=== PATIENT | male | born 1935 | race Caucasian/White ===

== ENCOUNTER 2018-12-16 10:28 | Inpatient (IN) ==
[2018-12-16 11:25] LABS: ALB/GLOB RATIO 1.5; ALBUMIN 3.5 g/dL (3.5-5.0); CALCIUM 8.3 mg/dL (8.8-10.2); CREATININE 1.5 mg/dL (0.7-1.2); POTASSIUM 4.8 mmol/L (3.5-5.1); TOTAL BILIRUBIN 0.51 mg/dL (0.20-1.00); TOTAL PROTEIN 5.9 g/dL (6.3-8.3)
[2018-12-16 11:34] LABS: BASO# 0.01 X1000 (0.0-0.2); BASO% 0.2 % (0.0-0.8); EOS# 0.09 X1000 (0.0-0.7); EOS% 1.5 % (0.0-10.0); HEMATOCRIT 20.8 % (42.0-52.0); HEMOGLOBIN 5.8 g/dL (14.0-18.0); IMM GRAN# 0.02 X1000 (0.0-0.04); IMM GRAN% 0.3 % (0.0-0.5); LYMPH# 0.57 X1000 (1.2-3.4); LYMPH% 9.3 % (20.5-51.1); MCH 24.9 PG (27-31); MCHC 27.9 g/dL (33-37); MCV 89.3 FL (81-99); MONO# 0.54 X1000 (0.11-0.59); MONO% 8.8 % (1.7-9.3); MPV 11.7 FL (7.4-10.4); NEUT# 4.88 X1000 (1.4-6.5); NEUT% 79.9 % (42.2-75.2); PLT 175 X1000 (130-400); RBC 2.33 XMIL (4.7-6.1); RDW 17.9 % (11.5-14.5); WBC 6.11 X1000 (4.8-10.8)
[2018-12-16] MEDS ORDERED: DUONEB (A & A) INH PRN (13:30)
[2018-12-16] MEDS ORDERED: ZOFRAN IV PRN (13:30)
[2018-12-16] MEDS ORDERED: TYLENOL PO PRN (13:30)
[2018-12-16] MEDS ORDERED: NS 1,000 ML IV SCH (13:30)
[2018-12-16 13:38] LABS: INR 3.08; PROTIME 32.7 Seconds (11.0-16.0)
[2018-12-16 13:39] LABS: PTT 72.4 Seconds (22.3-41.8)
--- NOTE | 2018-12-16 13:45 | PROVIDER DOCUMENTATION ---
This chart was entered by Aristeo Breen Scribe, acting as scribe for Jay Cabrera MD. HPI-Abdominal Pain/GI Problem - General Chief Complaint: Abnormal Lab[s] Stated Complaint: Abnormal lab values/ weakness Time Seen by Provider: 12/16/18 10:43 Source: patient Allergies/Adverse Reactions: Patient Allergies Allergy/AdvReac Type Severity Reaction Status Date / Time codeine [Codeine] AdvReac Intermediate LETHARGIC Verified 12/16/18 10:41 Home Medications: Home Medication List Medication Instructions Recorded Confirmed Last Taken Type ATORVAstatin [Lipitor] 20 mg PO QHS 12/02/16 12/16/18 12/15/18 History Allopurinol 100 mg PO BID 12/02/16 12/16/18 12/15/18 History Aspirin [Adult Low Dose Aspirin EC] 81 mg PO DAILY 12/02/16 12/16/18 12/15/18 History Magnesium Oxide [Mag-Ox] 400 mg PO DAILY tablet 12/20/16 12/16/18 12/15/18 Rx Pantoprazole [Protonix] 40 mg PO BID tablet 08/27/17 12/16/18 12/15/18 Rx Hydralazine [Apresoline] 50 mg PO TID 11/17/17 12/16/18 12/15/18 History Tamsulosin [Flomax] 0.4 mg PO QHS 11/17/17 12/16/18 12/15/18 History Potassium Chloride E.r. [Micro-K] 8 meq PO BID 11/25/17 12/16/18 12/15/18 History Sucralfate [Carafate] 1 gm PO 4XDAY 11/25/17 12/16/18 12/15/18 History Carvedilol [Coreg] 12.5 mg PO Q12H tablet 12/04/17 12/16/18 12/15/18 Rx Furosemide [Lasix] 40 mg PO DAILY tablet 12/04/17 12/16/18 12/15/18 Rx Levothyroxine [Synthroid] 112 microgm PO DAILY@0700 tablet 12/04/17 12/16/18 12/15/18 Rx Multivitamins/Iron [Hemocyte Plus 1 each PO DAILY capsule 12/04/17 12/16/18 Unknown Rx Capsule] Polyethylene Glycol 3350 [Miralax] 17 gm PO BID powder, packet 12/04/17 12/16/18 12/15/18 Rx Pregabalin [Lyrica] 100 mg PO DAILY 12/03/18 12/16/18 12/15/18 History Rivaroxaban [Xarelto] 20 mg PO DAILY 12/03/18 12/16/18 12/15/18 History Dexlansoprazole [Dexilant] 30 mg PO DAILY #7 bp 12/12/18 12/16/18 12/15/18 Rx Acetaminophen [Tylenol] 650 mg PO Q4H PRN PRN 12/16/18 12/16/18 Unknown History Ferrous Fumarate 324 mg PO DAILY 12/16/18 12/16/18 Unknown History Hydrocodone/Acetaminophen [[place] 1 ea PO Q6H PRN PRN 12/16/18 12/16/18 Unknown History 10-325 Tablet] Ipratropium/Albuterol Sulfate 3 ml INHALATION TID 12/16/18 12/16/18 Unknown History [Iprat-Albut 0.5-3(2.5) mg/3 ml] Levofloxacin [Levaquin] 500 mg PO DAILY 12/16/18 12/16/18 Unknown History Magnesium Hydroxide [Milk of 30 ml PO DAILY PRN PRN 12/16/18 12/16/18 Unknown History Magnesia] No122/Iron/Folic Acid 1 ea PO DAILY 12/16/18 12/16/18 Unknown History [ Multi Tablet] - History of Present Illness-ABD Nature of Presenting Problems: Pt is a 83 yom who presents to the ED with a CC of abnormal labs. Pt comes from a group home and states he was sent to the ED for having an abnormal H&H lab. Pt reports he was diagnosed with probable anemia with a hx of GI bleeds. Pt reports he has been having black stools lately. Pt also complains of being short of breath, having a productive cough, and experiencing generalized weakness. Pt reports a hx of HTN. Pt reports he had pneumonia last night. Pt reports being on a blood thinner. Abdominal Pain Onset Location: reports: generalized abdomen (Mild) Pain Radiation: reports: no radiation Quality of Pain: reports: dull Severity in ED: reports: mild Onset/Duration: reports: 3 days ago Timing: reports: still present Associated Symptoms: reports: cough, shortness of breath, weakness Dark Stools Present?: reports: black Rectal Bleeding: reports: blood mixed with stool Bruising or Bleeding Gums?: No Similar Symptoms Previously?: Yes Recently seen or treated by another doctor?: No Review of Systems - Adult - REVIEW OF SYSTEMS - ADULT Constitutional: reports: see HPI Eyes: reports: no symptoms reported Ears, Nose, Mouth & Throat: reports: no symptoms reported Cardiovascular: reports: no symptoms reported Respiratory: reports: no symptoms reported Gastrointestinal: reports: see HPI, abdominal pain, rectal bleeding, other Genitourinary: reports: no symptoms reported Musculoskeletal: reports: no symptoms reported Integumentary: reports: no symptoms reported Neurological: reports: no symptoms reported Psychiatric: reports: no symptoms reported Endocrine: reports: no symptoms reported Hematologic/Lymphatic: reports: no symptoms reported Allergic/Immunologic: reports: no symptoms reported All Other Systems: Reviewed and Negative Past History - Adult - PAST MEDICAL HISTORY-ADULT Review of Records: reports: Old Records Reviewed, Nursing Assessment Review, Medications Reviewed, Social history reviewed & non-contributory. Major Childhood Illnesses: reports: denies history Cardiovascular: reports: cardiac disease, CHF, HTN, hyperlipidemia, CA Respiratory: reports: COPD Gastrointestinal: reports: denies history Obstetrical/Gynecological: reports: denies history Genitourinary: reports: other (prostate disease with prostate surgery) Musculoskeletal: reports: denies history Neurological: reports: denies history Psychiatric: reports: denies history Endocrine/Immune: reports: thyroid disorder Other Conditions: reports: denies history - PRIOR SURGERIES/PROCEDURES Surgical/Procedure History: reports: CABG, cholecystectomy - IMMUNIZATION STATUS Childhood Immunizations: See Nurse Assessment Flu Vaccine: See Nurse Assessment - FAMILY HISTORY Family History: reviewed, not pertinent - SOCIAL HISTORY Smoking: non-smoker, quit greater than 1 year Substance Use: alcohol Alcohol Use Frequency: every day Physical Exam-General - PHYSICAL EXAM-ADULT Initial Vital Signs Reviewed: Yes - CONSTITUTIONAL General Appearance: alert, mild distress - EYES Eyes: PERRL/EOMI, pink conjunctivae - HEAD, EARS, NOSE, MOUTH & THROAT HENMT: normocephalic/atraumatic, moist mucous membranes - NECK Neck: non-tender, full range of motion - RESPIRATORY Respiratory: chest non-tender, lungs clear, normal breath sounds - CARDIOVASCULAR Cardiovascular: normal peripheral pulses, regular rate, rhythm - GASTROINTESTINAL (ABDOMEN) Abdominal Exam: normal bowel sounds, soft, tenderness - MUSCULOSKELETAL Extremity: normal range of motion, non-tender - SKIN Integumentary: warm/dry, pallor, swelling - NEUROLOGIC Neurologic: grossly normal - PSYCHIATRIC Psych/Mental Status: normal mood/affect, normal thought content, normal thought process, oriented x 3 Progress - PLAN OF CARE/RESULTS Progress/Plan/Lab Results: Vital Signs - 8 hr 12/16/18 10:38 Temperature 98.2 F Pulse Rate 79 Respiratory Rate 15 Blood Pressure 125/71 O2 Sat by Pulse Oximetry 95 Orders Category Date Time Status CBC WITH ELECTRONIC DIFF [HEME] Stat Lab 12/16/18 10:49 Results COMPREHENSIVE METABOLIC PANEL [CHEM] Stat Lab 12/16/18 10:49 Received OCCULT BLOOD SCREENING [STOOL] Stat Lab 12/16/18 10:55 Uncollected TYPE & SCREEN [BBK] Stat Lab 12/16/18 10:49 Received Result Diagrams: 12/16/18 10:49 12/16/18 10:49 - CONSULTS/PCP/HOSPITALIST Notification #1 *Consult/PCP/Hospitalist*: d/w DEJAN Uriostegui Time Discussed: 13:10 Consult Disposition: Admit Departure - Departure Date of Disposition Decision: 12/16/18 Time of Disposition Decision: 13:15 DIAGNOSIS: Anemia, GI bleed Disposition: ADMITTED INPATIENT 09 Certified Medical Emergency: Emergent Condition: Stable Additional Instructions: ED Follow Up Instructions: You have been treated by a care provider in the Emergency Department. These instructions are being provided to you so you can have an understanding of how to care for yourself upon discharge. Upon discharge from the Emergency Department, you are responsible for making arrangements for follow-up care by a physician of your choice. Take all prescribed medications as directed. Return to the Emergency Department immediately for any new or worsening symptoms. You may call the Physician Referral phone number at [phone] to obtain a list of Physicians who are taking new patients. Referrals and Follow-Ups: Zhen Rapp [Primary Care Provider] - - Critical Care Note This patient required my direct & personal management of CC.: No Attestation - Physician/ THO Attestation Patient care was provided by Advanced Practice Provider:: No The physician spent face to face time with patient:: Yes Advanced Practice Provider documentation review:: Supervising physician onsite and consulted in the evaluation and care of this patient. The physician did have a face to face encounter with the patient. This chart was documented by the indicated scribe, (Aristeo Breen, Caleb) and accurately reflects the services I performed and decisions made by me, Jay Cabrera MD, as attested by the provider's signature.
[2018-12-16] MEDS: CARAFATE LIQUID PO SCH ×2 (13:48→20:03)
--- NOTE | 2018-12-16 13:50 | Diag Imaging Result Doc PS360 ---
EXAM: CHEST-PORTABLE HISTORY: r/o pna TECHNIQUE: Single view COMPARISON: 12/03/2017 FINDINGS: The lungs are well expanded. Sternal wires and a left pacemaker. Mildly prominent heart. There is pulmonary edema. No pleural effusions identified. No consolidation. IMPRESSION: Persistent pulmonary edema Electronically signed by Marlon Garcia 12/16/2018 1:47 PM
[2018-12-16] MEDS: COREG PO SCH (14:01)
[2018-12-16 14:20] LABS: IRON SATURATION 5 %; TIBC 268 ug/dL; TOTAL IRON 14 ug/dL (53-167); UNBOUND IRON 254 ug/dL (112-346)
[2018-12-16] MEDS: PROTONIX 80 MG in NS 80 ML IV SCH ×3 (14:35→20:55)
[2018-12-16 14:40] LABS: FERRITIN 121 ng/mL (30-400)
[2018-12-16] MEDS ORDERED: DUONEB (A & A) INH SCH (15:00)
[2018-12-16] MEDS ORDERED: LASIX IV ONE ×2 (15:10→19:37)
[2018-12-16] MEDS ORDERED: SOLU-MEDROL IV ONE (15:39)
[2018-12-16] MEDS ORDERED: ROCEPHIN 1 GM in NS 50 ML IV SCH (15:45)
[2018-12-16 16:26] LABS: ALLEN TEST YES; BE -3.9 mmoll (-3.0-3.0); BLOOD TYPE ARTERIAL; HCO3-(ACT) 21.9 mmoll (20.0-26.0); METHB 0.9 % (0.0-1.5); O2(CT) 10.2 mL/dL (15.0-23.0); O2HB 93.5 % (95.0-99.0); PCO2(98.6) 31 mmHg (35-45); PO2(98.6) 70 mmHg (60-100); SAMPLE BLOOD; SAO2 97.4 % (95.0-100.0); THB 7.7 g/dL (11.5-17.4); pH(98.6) 7.42 (7.35-7.45)
[2018-12-16 16:27] LABS: MODALITY ROOM AIR
--- NOTE | 2018-12-16 18:04 | HISTORY AND PHYSICAL ---
PRIMARY CARE PROVIDER: Dr. Zhen Rapp CHIEF COMPLAINT: Weakness. HISTORY OF PRESENT ILLNESS: Mr. Adama Siegel is an 83-year-old male with a medical history of congestive heart failure, ejection fraction 40 to 45 percent, GERD, ischemic cardiomyopathy, MT with CAD and CABG in the past, hypothyroidism, COPD, where he wears 3 L of oxygen p.r.n., and chronic atrial fibrillation, but currently is being paced, and hypertension is here with complaints of generalized weakness. According to him back in November, he was admitted, or was attempted to be admitted December 03. During that time, we did not have GI coverage and was sent to [facility]. Prior to transfer, he did receive a unit of blood. The patient states that while he was there he received colonoscopy and EGD, but they did not find anything. He was then transferred to [facility] where he states he has been for the last 3 or 4 days. He claims that over the last 3 to 4 weeks, he has continued to have black tarry stools, dizziness started yesterday morning. He had some chills yesterday. He also on top of that complains of having shortness of breath and coughing up white phlegm for at least 3 days. Examination revealed that he had blood in the stool. His hemoglobin is 5.8 and hematocrit of 20.8. On top of that, he does have a mildly elevated D-dimer. He has got swelling in the right lower extremity with some tenderness. He also has chronic kidney disease stage 3, but it appears that he has a little bit of acute kidney injury on top of it. He denies any abdominal pain. He denies nausea, no vomiting. He is going to go for a CT of the abdomen and pelvis with a consult for Gastroenterology. He will also receive blood products. The INR subsequently is actually 3.0, and he is not on any Coumadin. However, he is on Xarelto for which we will hold. Chest x-ray reveals that he has got some pulmonary edema. He has been coughing. We will give him some Lasix with his blood products that he will be receiving, which includes 2 units of packed red blood cells and 1 FFP. He will be transferred to [facility] for closer observation. PAST MEDICAL HISTORY: 1. Congestive heart failure, ischemic cardiomyopathy with an ejection fraction of 40 to 45 percent and a permanent pacemaker. 2. CKD stage 3. 3. Hypothyroidism. 4. COPD with 3 L of oxygen p.r.n. 5. CAD with an MT and a CABG. 6. Hypertension. 7. Chronic atrial fibrillation. 8. BPH. 9. Peripheral neuropathy. 10. GERD. 11. Hyperlipidemia. 12. Gout. 13. Iron deficiency anemia, PAST SURGICAL HISTORY: 1. CABG. 2. Cholecystectomy. 3. 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 4. Bilateral carpal tunnel release. 5. Permanent pacemaker. 6. EGD dilatation February [address] Dewitt. 7. Reports that he had a colonoscopy and EGD at [facility]. 8. Hyperlipidemia. SOCIAL HISTORY: He quit smoking and drinking in 1989. 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 He smoked 1 and a half packs per day for 40 years, but again he said his big year of quitting was 1989. He has been on crutches due to the left kzwne-aij-ahua amputation since 1972. He lives with his son and is currently in rehab at [facility] for the last 3 or 4 days according to him. FAMILY HISTORY: He said his mother had heart trouble and his father had a brain tumor. ALLERGIES: Codeine states in that it knocks him out. HOME MEDICATIONS: 1. Flomax 0.4 mg p.o. nightly. 2. Lipitor 20 mg p.o. nightly. 3. Aspirin enteric-coated 81 mg p.o. daily. 4. Allopurinol 100 mg p.o. twice daily. 5. Hydralazine 50 mg p.o. t.i.d. 6. Carafate 1 g p.o. 4 times daily. 7. Ferrous fumarate 324 mg p.o. daily. 8. Albuterol and Atrovent nebulizers t.i.d. 9. Levaquin 500 mg p.o. daily. 10. Lyrica 100 mg p.o. daily. 11. Potassium chloride 8 mEq p.o. twice daily. 12. Milk of magnesia 30 mL p.o. daily p.r.n. 13. Oaks 10 mg 1 tablet p.o. every 6 hours p.r.n. 14. vitamins with iron and folic acid 1 tablet p.o. daily. 15. Tylenol 650 mg p.o. every 4 hours p.r.n. 16. Xarelto 20 mg p.o. daily. 17. Coreg 12.5 mg p.o. twice daily. 18. Dexilant 30 mg p.o. daily. 19. Another multivitamin with iron Hemocyte 1 tablet p.o. daily. 20. Lasix 40 mg p.o. daily. 21. Mag-Ox 400 mg p.o. daily. 22. MiraLAX 17 g p.o. twice daily. 23. Protonix 40 mg p.o. twice daily. 24. Synthroid 112 mcg p.o. daily. REVIEW OF SYSTEMS: Fourteen point review of systems are complete and all were negative except for those mentioned above in the HPI. PHYSICAL EXAMINATION: VITAL SIGNS: Temperature 98.4 degrees, heart rate 80, respiratory rate 17, blood pressure 156/83, O2 saturation 100% on room air. GENERAL: Mr. Adama Siegel is a 83-year-old male. He is in no acute distress. He is able answer questions appropriately. HEENT: Atraumatic, normocephalic. Pupils equal, round, reactive to light. Extraocular movements intact. Mucous membranes are moist. NECK: Trachea midline. CARDIOVASCULAR: S1, S2. Regular rate and rhythm. No rubs, gallops, murmurs. He has right lower edema, +1 dorsalis pedal pulse on the right. A left cnbno-ohk-vilu amputation, + 2 radial pulses. Negative for carotid bruits. Mild JVD. PULMONARY: Mild crackles in the bases. No accessory muscle use or work of breathing noted. He is tolerating room air Soft, nontender, nondistended. Positive bowel sounds x4. EXTREMITIES: Moves all extremities equally with decreased range of motion and again is noted a left lickn-hlc-nknf amputation NEUROLOGIC: A and O x3. Follows commands. Increased sensory in the right lower extremity. Tender to touch. SKIN: Warm, dry, and intact. It seems like on the right exterior of the right foot, there is a small wound that is not open. It looks like it is dried and scab, but it is tender to him. LABORATORY DATA: White blood cells 6000, hemoglobin 5.8, hematocrit 20.8, platelet count 175,000. INR is 3.08, PTT is 72.4. D-dimer is 1.18. Sodium 136, potassium 4.8, BUN 30, creatinine is 1.5, glucose 120, calcium 8.3. Iron is 14, total iron-binding capacity is 268, saturation 5, unsaturated 254, ferritin is 121, bilirubin 0.51, AST 39, ALT 29, albumin 3.5. Vitamin B12 is 511. IMAGING: Chest x-ray, persistent pulmonary edema. ASSESSMENT AND PLAN: 1. Likely upper gastrointestinal bleeding with black tarry stools and dizziness along with feeling weak. In the past, he has had esophagogastroduodenoscopy/dilatation. At that time, it showed esophagitis; this was in February 2017 when he had a esophagogastroduodenoscopy with Dr. Dewitt. Apparently, he has most recently according to him, had a new colonoscopy and esophagogastroduodenoscopy at [facility] for which we are going to try and get medical records from. He presented here December 03 to the ER with the same symptoms, was found to have a low hemoglobin and hematocrit and was given a unit of blood and transferred to [facility] as there was no available human resource statistician at that time. He denies any abdominal pain. We are going to start him on Protonix drip, Carafate, clear liquids for now, NPO after midnight. Serial hemoglobin hematocrit. He is also going to get 2 units of blood. He is also going to have to get a unit of fresh frozen plasma as he has an elevated INR from unknown cause and will repeat INR in the morning. We will consult Dr. Dewitt as he has seen him in the past. 2. Questionable coagulopathic. He is on Xarelto, we are going to hold that. He has elevated D- dimer, an elevated INR as well. He is going to get a unit of fresh frozen plasma. We will repeat will follow up on the D-dimer. 3. Acute hypoxemic respiratory insufficiency. He is requiring oxygen. He has had a productive cough for 3 days. D-dimer is elevated. We are going to get a V/Q scan as he has elevation in his creatinine as well. He will be on nebulizers p.r.n. oxygen and if we need to we can start an antibiotic. 4. History of chronic obstructive pulmonary disease. We are going to get an ABG to evaluate if he is having exacerbation. The bicarbonate on his chemistry is 21, so it could be a chronic obstructive pulmonary disease exacerbation. We will start some IV steroids. We will go ahead and do some antibiotics. 5. It seems as though he may have some acute on chronic systolic congestive heart failure. We are going to add a proBNP to his labs and we are going to start him on IV Lasix. 6. Elevated D-dimer. V/Q scan, a right lower extremity ultrasound. 7. Acute kidney injury on chronic kidney disease stage 3. Again, he has got some congestive heart failure. He is getting fluids via blood products minutes, so he is going to get IV Lasix. We will need to follow his BUN and creatinine closely. 8. Iron deficiency anemia, now with acute blood loss anemia, getting 2 units packed red blood cells and 1 fresh frozen plasma. 9. Gastroesophageal reflux disease. He is on a Protonix drip. 10. Hypothyroidism. We will continue Synthroid. 11. History of chronic atrial fibrillation, but we are going to hold off on his Xarelto due to the gastrointestinal bleeding. 12. Gout. Hold his medication for that as he has acute kidney injury. 13. 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 No complaints of chest pain at this time. 14. Hyperlipidemia. Continue statin. 15. Benign prostatic hypertrophy. Continue Flomax. 16. Deep venous thrombosis and sequential compression devices. Dictated by DEJAN Moore for Melvin Han MD cc: DEJAN Moore MD Alan Walker, MD
--- NOTE | 2018-12-16 18:24 | Diag Imaging Result Doc PS360 ---
LUNG SCAN / VQ - 12/16/2018 INDICATION: sob; elevated ddimer TECHNIQUE: 4120 mCi of DTPA was used for inhalation. 6.4 mCi of MAA was used for injection. COMPARISON: Chest x-ray earlier 12/16/2018 FINDINGS: There is patchy localization of the inhaled radiotracer compatible with small airways disease. There is nonspecific multifocal small perfusion defect in the lower lobes. This appears to match with ventilation defects. IMPRESSION: Nondiagnostic exam. Cannot exclude small pulmonary emboli in the lower lobes bilaterally. Electronically signed by Christopher Fernando 12/16/2018 6:22 PM
--- NOTE | 2018-12-16 18:51 | Diag Imaging Result Doc PS360 ---
CT ABDOMEN/PELVIS W/O CONTRAST - 12/16/2018 INDICATION: gib; severe anemia COMPARISON: 04/02/2015 FINDINGS: There is cardiomegaly. There are pacemaker leads in the heart. There are small bilateral pleural effusions. There are ill-defined infiltrates in the lung bases bilaterally most suggestive of pulmonary edema. There has been increase in size of the right renal cyst at the lower pole. This now measures 2.5 cm. This still appears simple and of fluid density. Stable cholecystectomy changes. Otherwise all abdominal organs appear normal. There is severe vascular disease of the aorta and pelvic branches. There is also severe vascular disease of the superior mesenteric artery. There is trace ascites in the pelvis. There is severe diverticulosis of the sigmoid colon. No definite bowel obstruction or inflammation. Normal appendix. Urinary bladder, prostate, and rectum are normal. No severe constipation. There are moderate degenerative changes of the spine. No acute or suspicious bony lesion. IMPRESSION: 1. Cardiomegaly, pleural effusions, pulmonary edema. 2. Severe diverticulosis coli. 3. Severe superior mesenteric artery disease. 4. Trace nonspecific ascites. This exam was performed using automated exposure control, adjustment of mA or kV according to patient size, and/or use of iterative reconstruction technique Electronically signed by Christopher Fernando 12/16/2018 6:49 PM
[2018-12-16] MEDS: FLOMAX PO SCH (20:03)
[2018-12-16] MEDS ORDERED: NS 500 ML ONE (20:30)
[2018-12-16] MEDS: NORCO-10 PO PRN (20:35)
[2018-12-16] MEDS: NS 500 ML IV SCH (20:56)
[2018-12-16 21:32] LABS: HEMATOCRIT 23.6 % (42.0-52.0); HEMOGLOBIN 7.1 g/dL (14.0-18.0)
[2018-12-16] MEDS: DUONEB (A & A) INH SCH (22:58)
[2018-12-17] MEDS: PROTONIX 80 MG in NS 80 ML IV SCH ×3 (00:36→08:35)
[2018-12-17] MEDS: COREG PO SCH ×2 (01:16→13:29)
[2018-12-17] MEDS: NORCO-10 PO PRN ×3 (01:17→20:19)
[2018-12-17 01:45] LABS: HEMATOCRIT 23.2 % (42.0-52.0); HEMOGLOBIN 6.8 g/dL (14.0-18.0)
[2018-12-17] MEDS: CARAFATE LIQUID PO SCH ×4 (02:14→20:19)
[2018-12-17] MEDS: DUONEB (A & A) INH SCH ×5 (04:57→19:52)
[2018-12-17 05:53] LABS: PTT 53.2 Seconds (22.3-41.8)
[2018-12-17 06:09] LABS: ALB/GLOB RATIO 1.8; ALBUMIN 3.5 g/dL (3.5-5.0); CREATININE 1.2 mg/dL (0.7-1.2); MAGNESIUM 2.5 mg/dL (1.5-2.7); POTASSIUM 4.9 mmol/L (3.5-5.1); TOTAL BILIRUBIN 0.87 mg/dL (0.20-1.00); TOTAL PROTEIN 5.4 g/dL (6.3-8.3)
[2018-12-17 06:12] LABS: HEMATOCRIT 25.4 % (42.0-52.0); HEMOGLOBIN 7.5 g/dL (14.0-18.0); LYMPH# 0.35 X1000 (1.2-3.4); LYMPH% 8.6 % (20.5-51.1); MCH 25.8 PG (27-31); MCHC 29.5 g/dL (33-37); MCV 87.3 FL (81-99); MONO# 0.05 X1000 (0.11-0.59); MONO% 1.2 % (1.7-9.3); MPV 12.4 FL (7.4-10.4); NEUT# 3.68 X1000 (1.4-6.5); NEUT% 90.2 % (42.2-75.2); PLT 180 X1000 (130-400); RBC 2.91 XMIL (4.7-6.1); RDW 16.9 % (11.5-14.5); WBC 4.08 X1000 (4.8-10.8)
[2018-12-17 06:15] LABS: INR 1.93; PROTIME 22.5 Seconds (11.0-16.0)
[2018-12-17] MEDS ORDERED: SODIUM CHLORIDE 0.9% 10 ML ONE ×2 (06:45→10:01)
--- NOTE | 2018-12-17 07:13 | EKG Report ---
Test Performed on : 12/17/2018 06:41:15 AM Test Reason : chest pain Blood Pressure : / mmHG Vent. Rate : 080 BPM Atrial Rate : 091 BPM P-R Int : 000 ms QRS Dur : 194 ms QT Int : 484 ms P-R-T Axes : 000 -79 097 degrees QTc Int : 558 ms Ventricular-paced rhythm Abnormal ECG When compared with ECG of 03-DEC-2018 16:24, (Unconfirmed) premature ventricular complexes. are no longer present Unconfirmed Result
[2018-12-17] MEDS ORDERED: DIPRIVAN 1% ONE (07:40)
[2018-12-17] MEDS ORDERED: HEMOCYTE PO SCH (09:00)
[2018-12-17] MEDS ORDERED: SOLU-MEDROL IV SCH (09:00)
[2018-12-17] MEDS ORDERED: LASIX IV SCH (09:00)
[2018-12-17] MEDS: HEMOCYTE PLUS CAPSULE PO SCH (09:18)
[2018-12-17] MEDS: LASIX PO SCH (09:18)
[2018-12-17] MEDS: SYNTHROID PO SCH (09:18)
[2018-12-17] MEDS: PRECARE PO SCH (09:19)
[2018-12-17] MEDS: VITAMIN K 10 MG in NS 50 ML IV SCH (09:19)
[2018-12-17] MEDS: MIRALAX PO SCH ×2 (10:09→20:20)
[2018-12-17] MEDS: LYRICA PO SCH ×2 (10:09→20:20)
[2018-12-17] MEDS: PROTONIX IV SCH (13:29)
[2018-12-17 14:01] LABS: HEMOGLOBIN 8.8 g/dL (14.0-18.0)
--- NOTE | 2018-12-17 14:19 | PROGRESS NOTE ---
DATE: 12/17/2018 INTERVAL HISTORY: The patient with only a very small bowel movement overnight, and reports that it continued to be black/melanotic. Continues to have paced rhythm. Complains primarily of phantom limb pain moved to his left lower extremity. No other new complaints. REVIEW OF SYSTEMS: Twelve point review of systems negative except as per interval history. LABORATORY: WBC 4.0, hemoglobin 7.5, hematocrit 25.4, and platelets 180,000. INR 1.9. Sodium 139, potassium 4.9, bicarb 23, BUN 32, creatinine 1.2, glucose 141, bilirubin 0.8, AST 55, ALT 46, alkaline phosphatase 135 and BNP 8,000. IMAGING: V/Q scan study not ideal, but no clear evidence of PE. Chest x-ray with pulmonary edema unchanged from previous CT abdomen and pelvis with cardiomegaly, pleural effusions, pulmonary edema, superior mesenteric artery disease, and diverticulosis, but no significant acute findings. VITAL SIGNS: T-max 98.7 degrees, pulse 89, respirations 19, blood pressure 146/62, and O2 saturation 95% on 3 L by nasal cannula. PHYSICAL EXAMINATION: General: No acute distress. Vitals: As above. HEENT: Normocephalic, atraumatic. Moist mucous membranes. Slight pallor noted. Cardiovascular: Currently, regular rate and rhythm. Pacemaker noted on upper chest. Pulmonary: Mild bibasilar crackles, but otherwise clear to auscultation. Good air entry. No wheezing. Abdomen: Soft. Nontender. Nondistended. Bowel sounds positive. Extremities: Peripheral pulses intact. Trace right lower extremity edema. Left hqeoc-qdn-sskh amputation noted. Neurologic: Cranial nerves grossly intact. No focal deficits identified. Psychiatric: Normal mood and affect. Awake, alert, and oriented x3. Skin: Healing wound on right foot. No new concerning rashes or lesions noted. ASSESSMENT AND PLAN: 1. Suspected upper gastrointestinal bleed with melena, dizziness and weakness. Status post transfusion of FFP and 1 unit of red cells last night with only slight improvement. He went from 6.8 to 7.5. Still some melanotic stools. We will transfuse an additional unit of blood and monitor. Likely EGD tomorrow. Clear liquids until midnight. Continue to monitor blood counts. Continue Protonix drip. Holding home Xarelto. 2. Elevated INR. Not really interpretable in the setting of Xarelto use, but holding Xarelto, and should be largely out of his system tomorrow. 3. Possible mild acute on chronic systolic congestive heart failure. The patient with EF of 40. Pulmonary edema on imaging that is not really significantly different than what he has had in the past, but they did put on some oxygen. Giving a little higher dose oral diuresis, but no need for highly aggressive diuresis at this point. 4. Chronic obstructive pulmonary disease. No sign of exacerbation at this time. 5. Acute kidney injury on likely chronic kidney disease 3. Improved with diuresis. Continue to monitor. 6. Paroxysmal atrial fibrillation. He has had a paced rhythm since he has been here but will monitor. 7. Hypothyroidism. Continue on Synthroid. 8. Gastroesophageal reflux disease. PPI drip as above. 9. BPH, stable. 10. Mildly elevated LFTs with normal bilirubin. Likely congestion rated related heart failure, but will recheck in the morning. No liver pathology noted on CT. If it persists, then we will get a liver ultrasound. 11. Neuropathic/phantom limb pain. We will restart home Lyrica. 12. Coronary artery disease. Holding home aspirin currently in the setting of gastrointestinal bleed, but will restart when possible.
--- NOTE | 2018-12-17 19:21 | GASTROENTEROLOGY CONSULTATION ---
DATE: 12/17/2018 REASON FOR CONSULT: GI bleed and severe anemia. HISTORY OF PRESENT ILLNESS: Mr. Siegel is an 83-year-old, male has history of congestive heart failure, GERD, ischemic cardiomyopathy, TN with CAD and CABG, hypothyroidism, COPD. He uses oxygen 3 L at home. He also has chronic atrial fibrillation. The patient has a pacemaker and he is paced. He complained of generalized weakness. In November while he was at the hospital, he received one unit of blood and was sent to [facility] where they performed colonoscopy and EGD, and did not find anything, he was sent to the rehab facility [facility]. Currently, he is complaining of having dark tarry stools, feeling weak and dizzy. He denied any fever, but had chills with SOB and productive cough. He has denied any nausea, vomiting and abdominal pain. Patient is currently on Xarelto. PAST MEDICAL HISTORY: Congestive heart failure, ischemic cardiomyopathy, CKD, hypothyroidism, COPD, CAD, hypertension, chronic atrial fibrillation, BPH, peripheral neuropathy, GERD, hyperlipidemia, gout, and iron deficiency anemia. PAST SURGICAL HISTORY: CABG, cholecystectomy, left ygcby-ngq-nupq amputation, bilateral carpal tunnel release, permanent pacemaker. SOCIAL HISTORY: He quit smoking and drinking. 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 He smokes 1 to 1-1/2 packs a day. He lives with his son and is currently in rehab at [facility]. FAMILY HISTORY: Mother had heart problems and father had a brain tumor. ALLERGIES: He is allergic to codeine. HOME MEDICATIONS: Allopurinol 100 mg twice a day, Lipitor 20 mg at bedtime, aspirin 81 mg daily, magnesium oxide 400 mg daily, Protonix 40 mg twice a day, hydralazine 50 mg 3 times a day, Flomax 0.4 mg at bedtime, potassium chloride 8 mEq twice a day, Carafate 1 g 4 times a day, Lasix 40 mg daily, Synthroid 112 mcg daily, multivitamins 1 tablet daily, MiraLAX 17 g twice a day, Coreg 12.5 mg twice a day, Lyrica 100 mg daily, Xarelto 20 mg daily, Dexilant 30 mg daily, hydrocodone/acetaminophen 1 tablet every 6 hours as needed, albuterol inhaler 3 times a day, magnesium hydroxide 30 mL daily, iron tablets 1 daily, acetaminophen 650 mg every 4 hours as needed, ferrous fumarate 324 mg daily, levofloxacin 500 mg daily. REVIEW OF SYSTEMS: As per HPI. Otherwise, 12-point review of systems is negative. PHYSICAL EXAMINATION: Vital Signs: Temperature 97.7 degrees, pulse 89, respirations 19, blood pressure 146/62, oxygen saturation 95% on 3 L nasal cannula. The patient's weight is 196 pounds. BMI is 25.9 kg/m2. General: He is alert, oriented x3, and in no acute distress. HEENT: Pale conjunctivae. No icterus. PERRL. Neck: Supple. Lungs: Clear to auscultation in the anterior victor. Cardiovascular: Regular rate and rhythm. Abdomen: Soft, distended, nontender. Active bowel sounds heard in all 4 quadrants. Extremities: Left iivez-brb-gggi amputation. Neurological: Alert and oriented x3. Nonfocal. Cranial nerves 2-12 grossly intact. LABORATORY AND DIAGNOSTIC DATA: WBC is 4.08, RBC 2.91, hemoglobin 7.54, hematocrit 25.4, platelet count is 180,000. Sodium 139, potassium 4.9, chloride 102, carbon dioxide 21, anion gap 13, BUN 32, creatinine 1.2. AST 55, ALT 46, alkaline phosphatase 135. Lung V/Q scan showed nondiagnostic exam, cannot exclude small pulmonary emboli in the lower lobes bilaterally. Chest x-ray, persistent pulmonary edema. Abdominal and pelvis CT showed cardiomegaly, pleural effusion, pulmonary edema, severe diverticulosis coli, severe superior mesenteric artery disease, trace nonspecific ascites. IMPRESSION: 1. Upper gastrointestinal bleed. 2. Acute hypoxemic respiratory insufficiency. 3. Chronic obstructive pulmonary disease. 4. Acute kidney injury. 5. Iron deficiency anemia. 6. Gastroesophageal reflux disease. 7. Chronic atrial fibrillation, on anticoagulant. 8. Hyperlipidemia. 9. Hypertension. PLAN: We were planning to do an EGD tomorrow, but will check his PT and INR before doing the procedure. The patient has received 10 mg of vitamin K. He is on Protonix 40 mg twice a day for GI bleed. We will continue to monitor the patient's CBC, BMP and follow the plan of care per PCP. Further plan of care will be based on EGD findings. This plan was discussed with Dr. Aguilera. Thank you for your consult. Please call us for any further questions or concerns. Dictated by DEJAN Siddiqui for Jose C Aguilera MD Physician Attestation I have seen and examined the patient. I have discussed and reviewed the the note by Meme WYLIE and agree with findings and plan as documented. In brief, Mr. Adama Siegel is a 83 year old man with CAD c/b CABG and pacemaker, PAD, COPD, ICM, Afib on Xarelto who presents with 3 weeks of melena. He was recently hospitalized at [facility] and underwent EGD/colonoscopy on 12/05 that showed only diverticulosis, but no signs of active bleeding. He reports continue melena. His INR is elevated secondary to Xarelto. Holding blood thinners. On PPI IV BID. Started vitamin K. Clear liquid diet. NPO after MN for diagnostic EGD tomorrow. Check INR in AM; goal 1.5. EDUARD improved. Please call with questions MTDD
[2018-12-17 19:23] LABS: HEMATOCRIT 26.7 % (42.0-52.0); HEMOGLOBIN 8.1 g/dL (14.0-18.0)
[2018-12-17] MEDS ORDERED: CALMOSEPTINE OINTMENT TOP PRN (19:40)
[2018-12-17] MEDS: FLOMAX PO SCH (20:20)
[2018-12-17] MEDS: NS 500 ML IV SCH (20:24)
[2018-12-17 23:31] LABS: HEMOGLOBIN 8.5 g/dL (14.0-18.0)
[2018-12-18] MEDS: DUONEB (A & A) INH SCH ×6 (00:19→23:30)
[2018-12-18] MEDS: CARAFATE LIQUID PO SCH ×2 (00:59→08:46)
[2018-12-18] MEDS: PROTONIX IV SCH ×2 (02:20→15:02)
[2018-12-18 06:36] LABS: INR 1.46
[2018-12-18 06:37] LABS: HEMATOCRIT 28.5 % (42.0-52.0); HEMOGLOBIN 8.6 g/dL (14.0-18.0); IMM GRAN# 0.03 X1000 (0.0-0.04); IMM GRAN% 0.4 % (0.0-0.5); LYMPH# 0.55 X1000 (1.2-3.4); LYMPH% 6.5 % (20.5-51.1); MCH 26.1 PG (27-31); MCHC 30.2 g/dL (33-37); MCV 86.4 FL (81-99); MONO% 5.9 % (1.7-9.3); MPV 11.4 FL (7.4-10.4); NEUT# 7.33 X1000 (1.4-6.5); NEUT% 87.2 % (42.2-75.2); PLT 192 X1000 (130-400); PTT 42.9 Seconds (22.3-41.8); RDW 16.5 % (11.5-14.5); WBC 8.41 X1000 (4.8-10.8)
[2018-12-18 06:40] LABS: ALB/GLOB RATIO 1.4; ALBUMIN 3.4 g/dL (3.5-5.0); CALCIUM 8.5 mg/dL (8.8-10.2); CREATININE 1.2 mg/dL (0.7-1.2); MAGNESIUM 2.5 mg/dL (1.5-2.7); POTASSIUM 4.3 mmol/L (3.5-5.1); TOTAL BILIRUBIN 0.68 mg/dL (0.20-1.00); TOTAL PROTEIN 5.9 g/dL (6.3-8.3)
[2018-12-18] MEDS ORDERED: SODIUM CHLORIDE 0.9% 0 ML ONE (06:55)
[2018-12-18 07:47] LABS: ANISOCYTOSIS 1+; BANDS 2 % (0-1); HYPOCHROM 1+; LYMPHS 10 % (21-51); MONO 2 % (1-9); SEGS 86 % (42-75)
[2018-12-18 07:48] LABS: POIKILOCYTOSIS 1+
[2018-12-18] MEDS: VITAMIN K 10 MG in NS 50 ML IV SCH (08:45)
[2018-12-18] MEDS: NORCO-10 PO PRN ×2 (08:50→20:57)
[2018-12-18] MEDS: LYRICA PO SCH ×2 (08:50→20:51)
[2018-12-18] MEDS: SYNTHROID PO SCH (08:50)
[2018-12-18] MEDS: COREG PO SCH ×2 (08:53→20:52)
[2018-12-18] MEDS ORDERED: XYLOCAINE-MPF 2% ONE (09:55)
[2018-12-18] MEDS ORDERED: SODIUM CHLORIDE 0.9% 10 ML ONE (09:55)
[2018-12-18] MEDS ORDERED: DIPRIVAN 1% ONE (09:55)
[2018-12-18] MEDS ORDERED: FENTANYL ONE (09:57)
--- NOTE | 2018-12-18 10:15 | ENDOSCOPY OPERATIVE NOTE ---
[facility] ENDOSCOPY OPERATIVE NOTE , PATIENT: Adama Siegel ADMISSION DATE: 12/18/2018 MR#: [id number] : 1935 EGD PROCEDURE REPORT PROCEDURE DATE: 12/18/2018 SURGEON: Jose C Aguilera MD STATUS: inpatient SURVEILLANCE SYSTEMS ANALYST: PREOPERATIVE DIAGNOSIS: The patient is a 83 yr old male here for an EGD due to melena. PROCEDURE PERFORMED: EGD, diagnostic MEDICATIONS: Per Anesthesia TOPICAL ANESTHETIC: none CONSENT: The patient understands the risks and benefits of the procedure and understands that these r isks include, but are not limited to: sedation, allergic reaction, infection, perforation and/or bleeding. Alternative means of evaluation and treatment include, among others: physical exam, x-rays, and/or surgical intervention. The patient elects to proceed with this endoscopic procedure. HISORY AND PHYSICAL: 12/18/2018 DESCRIPTION OF PROCEDURE: During intra-op preparation period all mechanical and medical equipment was checked for proper function. Hand hygiene and appropriate measures for infection prevention was taken. After the risks, benefits and alternatives of the procedure were thoroughly explained, Informed consent was verified, confirmed and timeout was successfully executed by the treatment team. The patient was anesthetized with topical anesthesia and the [id number] ([id number]) endoscope was introduced through the mouth and advanced to the second portion of the duoden um. Retroflexion was performed in the stomach and revealed no abnormalities. The gastroscope was then slowly withdraw n and removed. ESOPHAGUS: The mucosa of the esophagus appeared normal. STOMACH: Mild gastritis (inflammation) was found in the gastric body and gastric antrum. DUODENUM: The duodenum was normal. SPECIMENS REMOVED: No ADVERSE EVENTS: There were no complications. POSTOPERATIVE DIAGNOSIS: 1. The mucosa of the esophagus appeared normal 2. Gastritis (inflammation) was found in the gastric body and gastric antrum 3. The duodenum was normal RECOMMENDATIONS: NPO Obtain tagged RBC scan Trend H/H, transfuse prn for goal hgb 7-8 REPEAT EXAM: Jose C Aguilera MD eSigned: Jose C Aguilera MD 12/18/2018 10:14 AM cc: PATIENT NAME: Adama Siegel MR#: [id number]
--- NOTE | 2018-12-18 13:35 | Diag Imaging Result Doc PS360 ---
EXAM: GI BLEED INDICATION: melena, negative EGD, recent EGD/colonoscopy neg TECHNIQUE: 19 mCi of technetium 99 pertechnetate and cold PYP were used for red blood cell tagging. COMPARISON: None. FINDINGS: There is faint normal activity in the urinary bladder. There is focal activity at the midline of the lower pelvis. This very likely represents normal penile uptake. However, this can sometimes mask a lower rectal bleed. Correlate clinically for bright red blood per rectum. No other abnormal uptake is identified to indicate a GI bleed. IMPRESSION: Activity at the lower pelvis near the midline that very likely represents normal penile uptake. Please see above discussion. No evidence of active GI bleed, otherwise. Electronically signed by Jackson Suero 12/18/2018 1:33 PM
[2018-12-18] MEDS: MIRALAX PO SCH ×2 (14:46→22:37)
[2018-12-18] MEDS: HEMOCYTE PLUS CAPSULE PO SCH (15:01)
[2018-12-18] MEDS: LASIX PO SCH (15:01)
[2018-12-18] MEDS: PRECARE PO SCH (15:02)
--- NOTE | 2018-12-18 15:09 | Diag Imaging Result Doc PS360 ---
EXAM: US GB < RUQ (LIMITED) 12/18/2018 HISTORY: elevated AST/ALT/alk phos. elevated INR. TECHNIQUE: Right upper quadrant ultrasound COMMENT: The visualized portions of the aorta and inferior vena cava are within normal limits. The liver is slightly hyperechoic. There is antegrade but pulsatile flow in the portal vein. There is no evidence of biliary dilatation the common bile duct measuring less than 7 mm. The right kidney in the contains a cyst measuring 3.6 cm in greatest dimension. The gallbladder is surgically absent. IMPRESSION: Hepatic steatosis versus cirrhosis. Electronically signed by Dmitry Hutchison 12/18/2018 3:07 PM
--- NOTE | 2018-12-18 17:02 | Extremity Venous Study ---
PROCEDURE NAME: Venous U/S Right Leg - 12/16/2018 DATE: 12/16/2018. REFERRING PROVIDER: DEJAN Moore READING PHYSICIAN: Dr. Batista. SHOE LASTER: Yelena. INDICATIONS: Right leg pain and swelling. FINDINGS: The deep and superficial veins of the right lower extremity were imaged throughout their course. They are compressible and patent without thrombus. INTERPRETATION: There is no DVT or SVT of the right lower extremity. Of note, the right greater saphenous vein has previously been harvested. cc: MD Gila De La Cruz CRNP
--- NOTE | 2018-12-18 20:21 | PROGRESS NOTE ---
DATE: 12/18/2018 INTERVAL HISTORY: The patient is status post endoscopy this morning that showed mild gastritis with no ulcer. No active bleeding at that time. The patient complains only of dry mouth and hunger. No acute events overnight. REVIEW OF SYSTEMS: Twelve-point review of systems negative except as per interval history. LABORATORY DATA: WBC 8.4, hemoglobin 8.6, hematocrit 28.5, platelets 192,000. INR 1.46. Basic metabolic panel remarkable for BUN 32, creatinine 1.2, glucose 124, AST 64, ALT 68, alkaline phosphatase 135, bilirubin 0.68, iron 14, TIBC 268, iron sat 5, ferritin 121. IMAGING: Tagged red cell study: No clear evidence for GI bleed. Abdominal ultrasound with hepatic steatosis versus cirrhosis. No acute process. No evidence of biliary dilatation. VITALS: T-max 98.2 degrees, pulse 80, respirations 16, blood pressure 131/80, O2 saturation 97% on 3 L. PHYSICAL EXAMINATION: General: No acute distress. Vitals: As above. HEENT: Normocephalic, atraumatic. No cervical adenopathy. Cardiovascular: Regular rate and rhythm. Pacemaker noted in the upper chest. Pulmonary: Largely clear to auscultation bilaterally. Good air entry. No wheezing. Abdomen: Soft, nontender, nondistended. Bowel sounds positive. Extremities: Peripheral pulses intact. Trace right lower extremity edema unchanged. Left xiiun-jin-plks amputation stable. Neurologic: Cranial nerves grossly intact. No focal deficits identified. Psychiatric: Normal mood and affect. Awake, alert and oriented x3. Skin: A small healing wound on right foot without evidence of infection. No new appearing rashes or lesions noted. ASSESSMENT AND PLAN: 1. Suspected upper gastrointestinal bleed with melena, dizziness, weakness. Status post transfusion of 2 units of FFP per GI and 3 units of packed red blood cells. The patient's blood counts appear to be roughly stable at this point. Iron studies do suggest deficiency so I may have a chronic aspect to his GI bleeding. We will give him a blood transfusion, and we will hold off on IV iron, but we will likely discharge on p.o. iron at that time. Holding home Xarelto. Continue Protonix. Esophagogastroduodenoscopy showing mild gastritis, which could potentially be the source of his bleeding, but GI pursuing further workup. Tagged red cell study without clear source of bleeding. 2. Elevated INR. Uninterpretable in the setting of Xarelto use, but holding Xarelto and appears to be coming down. Mildly elevated LFTs and ultrasound showing possible cirrhosis does raise some concern for hepatic issue causing his elevated INR. Bilirubin, however, is normal so that would be unusual. 3. Possible mild acute on chronic systolic congestive heart failure. The patient with ejection fraction of 40%. Pulmonary edema on initial imaging roughly similar to what he has had in the past. Resolved with mild diuresis on admission. 4. Chronic obstructive pulmonary disease. No sign of exacerbation at this time. 5. Acute kidney injury on likely chronic kidney disease 3. Actually improved with diuresis. Stable since then. Monitor. 6. Paroxysmal atrial fibrillation. The patient has had a paced rhythm since he has been here. No atrial fibrillation so far but continue to monitor. 7. Hypothyroidism. Continue on Synthroid. 8. Gastroesophageal reflux disease. Proton pump inhibitor as above. 9. Benign prostatic hyperplasia, stable. 10. Likely early cirrhosis/advanced fatty liver. Patient with mildly elevated LFTs with normal bilirubin. Also did have elevated INR as above. Ultrasound showing fatty liver versus early cirrhosis. Given ultrasound findings, we will go ahead and check hepatitis panel. Monitor. 11. Neuropathic/phantom limb pain. Continue home Lyrica. 12. Coronary artery disease. Holding aspirin currently. Monitor.
[2018-12-18] MEDS: FLOMAX PO SCH (20:51)
[2018-12-18] MEDS: NS 500 ML IV SCH (22:36)
[2018-12-19] MEDS: DUONEB (A & A) INH SCH ×4 (03:33→11:58)
[2018-12-19] MEDS: NORCO-10 PO PRN ×2 (03:45→09:48)
[2018-12-19] MEDS: PROTONIX IV SCH ×2 (03:45→13:00)
[2018-12-19 05:19] LABS: EOS# 0.08 X1000 (0.0-0.7); EOS% 1.2 % (0.0-10.0); HEMATOCRIT 28.9 % (42.0-52.0); HEMOGLOBIN 8.5 g/dL (14.0-18.0); IMM GRAN# 0.03 X1000 (0.0-0.04); IMM GRAN% 0.5 % (0.0-0.5); LYMPH# 0.77 X1000 (1.2-3.4); LYMPH% 11.8 % (20.5-51.1); MCH 25.8 PG (27-31); MCHC 29.4 g/dL (33-37); MCV 87.8 FL (81-99); MONO# 0.51 X1000 (0.11-0.59); MONO% 7.8 % (1.7-9.3); MPV 11.3 FL (7.4-10.4); NEUT# 5.16 X1000 (1.4-6.5); NEUT% 78.7 % (42.2-75.2); PLT 195 X1000 (130-400); RBC 3.29 XMIL (4.7-6.1); RDW 16.4 % (11.5-14.5); WBC 6.55 X1000 (4.8-10.8)
[2018-12-19 05:48] LABS: AGAP 12; ALB/GLOB RATIO 1.5; ALBUMIN 3.2 g/dL (3.5-5.0); ALKALINE PHOSPHATASE 127 U/L (32-122); BUN 28 mg/dL (8-22); CALCIUM 8.2 mg/dL (8.8-10.2); CHLORIDE 105 mmol/L (98-107); COSMO 290; CREATININE 1.1 mg/dL (0.7-1.2); ESTIMATED GFR > 60; GLUCOSE 92 mg/dL (70-104); GOT 45 U/L (10-34); GPT 66 U/L (10-44); MAGNESIUM 2.4 mg/dL (1.5-2.7); POTASSIUM 3.6 mmol/L (3.5-5.1); SODIUM 143 mmol/L (136-145); TCO2 26 mmol/L (25-35); TOTAL BILIRUBIN 0.55 mg/dL (0.20-1.00); TOTAL PROTEIN 5.4 g/dL (6.3-8.3)
[2018-12-19] MEDS: SYNTHROID PO SCH (06:18)
[2018-12-19] MEDS ORDERED: SODIUM CHLORIDE 0.9% 0 ML ONE (09:00)
[2018-12-19] MEDS ORDERED: ICAR-C PO SCH (09:00)
[2018-12-19] MEDS: HEMOCYTE PLUS CAPSULE PO SCH (09:47)
[2018-12-19] MEDS: PRECARE PO SCH (09:47)
[2018-12-19] MEDS: COREG PO SCH (09:48)
[2018-12-19] MEDS: LASIX PO SCH (09:48)
[2018-12-19] MEDS: VITAMIN K 10 MG in NS 50 ML IV SCH ×2 (09:48→09:53)
[2018-12-19] MEDS: LYRICA PO SCH (09:48)
[2018-12-19] MEDS: MIRALAX PO SCH (09:49)
[2018-12-19 10:16] LABS: INR 1.25; PROTIME 15.9 Seconds (11.0-16.0)
[2018-12-19] MEDS ORDERED: SODIUM CHLORIDE 0.9% 10 ML ONE (13:00)
[2018-12-19 14:06] VITALS: BP 147/55
--- NOTE | 2018-12-19 14:59 | DISCHARGE SUMMARY ---
ADMISSION DATE: 12/16/2018 DISCHARGE DATE: 12/19/2018 CONSULTS: GI, Dr. Aguilera. PROCEDURES: EGD showing mild gastritis in the gastric body and gastric antrum with normal duodenum. PERTINENT STUDIES: CT abdomen and pelvis with cardiomegaly, diverticulosis, superior mesenteric artery disease, trace nonspecific ascites. V/Q scan not ideal technically, but no evidence of pulmonary embolism. Lower extremity Doppler is negative for DVT. Abdominal ultrasound showing hepatic steatosis versus early cirrhosis. Tagged red cell scan with no clear evidence of GI bleed. Initial hemoglobin 5.8. Discharge hemoglobin 8.5. Initial creatinine 1.5. Discharge creatinine 1.1. Iron 14, TIBC 268, iron saturation 5, ferritin 121, folate greater than 40. DISCHARGE DIAGNOSES: 1. Likely upper gastrointestinal bleed. 2. Acute blood loss anemia. 3. Elevated INR. 4. Very mild acute on chronic systolic congestive heart failure, ejection fraction 40%. 5. Chronic obstructive pulmonary disease. 6. Acute kidney injury on chronic kidney disease 3. 7. Paroxysmal atrial fibrillation. 8. Paced rhythm. 9. Hypothyroidism. 10. Gastroesophageal reflux disease. 11. Benign prostatic hypertrophy. 12. Mildly elevated liver function tests. 13. Neuropathic/phantom limb pain. 14. Coronary artery disease. HOSPITAL COURSE: The patient presented initially with complaints of generalized weakness. He had reportedly had a GI bleed workup about a month ago at [facility]. He was discharged to [facility] from there. He stated that since then he had had dark tarry stools, dizziness, as well as mild shortness of breath and largely nonproductive cough. He was found to be Hemoccult positive. Initial hemoglobin was significantly low at 5.8. He was suspected to have a GI bleed. He was placed on Protonix and GI was consulted. The patient was on anticoagulation with Xarelto and aspirin, so EGD was initially deferred for a couple days, but when performed showed mild gastritis but there was not actively bleeding. No rick ulcers. Tagged red cell scan was performed which was negative. The patient was transfused initially with 2 units of packed red blood cells initially and then 1 additional unit when improvement was not ideal. After that, he was stable at approximately 8.5. The patient also had a mild acute kidney injury on admission with a creatinine 1.5, but was diuresed anyway because of concerns for possible mild congestive heart failure. The patient's BNP was elevated at approximately 8,000. Had minimal edema on x-ray. Was never hypoxic. Both kidney function and his dyspnea improved after diuresis and remained stable after that. The patient has a history of paroxysmal atrial fibrillation which is the reason he was on Xarelto, but during this hospitalization he had a paced rhythm the entire time he was here. Because of 2 recent episodes of significant GI bleeding and no recent atrial fibrillation, the decision was made to leave him off of anticoagulation at least for now. The patient also incidentally noted mildly elevated LFTs with AST 55, ALT 46, alkaline phosphatase 135 with a normal bilirubin. CT and ultrasound showed only fatty liver versus early cirrhosis. Hepatitis studies were pending at time of discharge, but this was felt to likely be chronic fatty liver. The patient's bilirubin never went up and patient's INR remained normal after discontinuing Xarelto. Patient had minimally elevated D-dimer at 1.1 on admission, but workup with V/Q scan and lower extremity Doppler was negative for thrombus. No major pathology was found on endoscopy patient's blood counts remained stable after discontinuing Eliquis. It was felt the patient was stable for discharge back to senior living facility. The patient to follow up with PCP and GI. DISCHARGE VITAL SIGNS: Temperature 98.2 degrees, pulse 82, respirations 14, blood pressure 147/55, O2 saturation 98% on 3 L by nasal cannula. DISCHARGE DIET: Cardiac. DISCHARGE MEDICATIONS: Flomax 0.4 mg p.o. at bedtime, aspirin 81 mg p.o. daily, allopurinol 100 mg p.o. b.i.d., ferrous fumarate 324 mg p.o. daily, DuoNeb t.i.d. as needed, potassium 8 mEq p.o. b.i.d., milk of magnesia daily as needed, Tylenol 650 p.o. q.4 hours as needed, not to exceed 3 g in a day, atorvastatin 40 mg p.o. at bedtime, Coreg 12.5 mg p.o. b.i.d., Lasix 80 mg p.o. daily, Lyrica 50 mg p.o. b.i.d., MiraLAX 17 g p.o. b.i.d., [place] 10/325 q.6 hours p.r.n., not to exceed 3 grams of Tylenol in a day, Protonix 40 mg p.o. b.i.d., Synthroid 112 mcg daily. FOLLOW UP AND PLAN: Patient discharging back to senior living facility for rehab. Holding anticoagulation for now but resuming aspirin given extensive cardiac history. If patient has further bleeding, that may have to be discontinued as well. Follow up with his PCP and GI. TIME SPENT: Greater than 30 minutes spent arranging discharge and counseling patient.
--- NOTE | 2018-12-19 15:18 | GASTROENTEROLOGY PROGRESS NOTE ---
DATE: 12/19/2018 SUBJECTIVE: Mr. Siegel is an 83-year-old, male resting in bed. He has denied any nausea, vomiting, or abdominal pain, but complained of dry mouth. He mentioned that he had a big bowel movement today OBJECTIVE: Vital Signs: Temperature 97.6 degrees, pulse is 59, respirations 18, blood pressure 140/57, oxygen saturation 94%. He is on 3 L nasal cannula. His weight is 198 pounds, BMI is 26.1 kg/m2. General: He is alert, oriented x3, and in no acute distress. HEENT: Pale conjunctivae. No icterus. PERRL. Neck: Supple. Lungs: Clear to auscultation bilaterally in the anterior victor. Cardiovascular: Regular rate and rhythm. The patient is bradycardic. Abdomen: Soft, nontender, mildly distended. Active bowel sounds heard in all 4 quadrants. Extremities: No clubbing, no cyanosis. He has edema in the right lower extremity. Pedal pulses present in the right lower extremity. He has a left [id number] amputation. Neurological: Alert and oriented x3. Laboratory Data: WBCs 6.55, RBCs 3.29, hemoglobin 8.5, hematocrit 28.9, platelet count 195,000. The patient's PT was 18.0, INR 1.46. Sodium 143, potassium 3.6, chloride 105, carbon dioxide 26, anion gap 12, BUN 28, creatinine is 1.1, glucose 92, calcium 8.2, magnesium 2.4. Total bilirubin is 0.55, AST 45, ALT 66, alkaline phosphatase is 127, albumin 3.2. A GI bleed nuclear scan showed activity at the lower pelvis near the midline that very likely represents normal penile uptake. Abdominal ultrasound showed hepatic steatosis versus cirrhosis. IMPRESSION: 1. Upper gastrointestinal bleed. 2. Gastritis 3. Chronic obstructive pulmonary disease. 4. Gastroesophageal reflux disease. 5. Coagulopathy 6. Iron deficiency anemia. 7. Elevated LFT's 8. Acute kidney injury. 9. Chronic atrial fibrillation. PLAN: We did an EGD yesterday, esophagus was normal. The stomach showed mild gastritis in the gastric body and the gastric antrum. Duodenum was normal. No biopsies were done. We will continue him on GI prophylaxis, Protonix 40 mg IV twice a day. The patient is on a bowel regimen, MiraLAX 17 g. He has also received vitamin K 10 mg at 50 mL per hour for his coagulopathy. The patient is receiving multivitamins/iron, MVI, folic acid/iron and iron tables. So far, the patient has received 2 units of fresh frozen plasma and 3 units of packed red blood cells. If his hemoglobin drops below 7, we will transfuse 1 unit of blood. Right now, his hemoglobin today is 8.5 and hematocrit is 28.9. We will continue to monitor his CBCs and BMPs, and continue to follow the plan of care per PCP. This plan was discussed with Dr. Whyte. Please call us for any further questions or concerns. Dictated by DEJAN Siddiqui for [place] Whyte MD cc: Lake Whyte MD I have seen and examined the patient myself. I agree with the above plan of care. Patient may need colonoscopy as an outpatient if continues to be anemic. Follow up with Dr Aguilera in 1-2 weeks. I have discussed the above with the patient and all questions were answered. Please call us with any further questions or concerns. LAILA
[2018-12-20 11:37] LABS: HEPATITIS PROFILE ACUTE SEE COMMENTS
== END 2018-12-19 15:06 | DRG 377 ==
LOC: SUPCPDRO → ED 10:28 → SUATTDRO 14:51 → 3N 14:51 → 2N 17:44 → 1N 12-18 15:42
PROVIDERS: ATTEND Internal Medicine

== ENCOUNTER 2019-01-11 20:20 | Inpatient (IN) ==
[2019-01-11 20:56] LABS: BASO# 0.01 X1000 (0.0-0.2); BASO% 0.2 % (0.0-0.8); EOS# 0.06 X1000 (0.0-0.7); EOS% 0.9 % (0.0-10.0); HEMATOCRIT 28.4 % (42.0-52.0); HEMOGLOBIN 8.5 g/dL (14.0-18.0); LYMPH# 0.55 X1000 (1.2-3.4); LYMPH% 8.4 % (20.5-51.1); MCH 25.9 PG (27-31); MCHC 29.9 g/dL (33-37); MCV 86.6 FL (81-99); MONO% 6.1 % (1.7-9.3); NEUT% 84.4 % (42.2-75.2); PLT 133 X1000 (130-400); RBC 3.28 XMIL (4.7-6.1); RDW 17.9 % (11.5-14.5); WBC 6.52 X1000 (4.8-10.8)
--- NOTE | 2019-01-11 20:56 | Diag Imaging Result Doc PS360 ---
EXAM: CHEST-2 VIEWS - 01/11/2019 HISTORY: SOB TECHNIQUE: Chest two views COMPARISON: 12/26/2018 portable chest FINDINGS: There is stable mild cardiomegaly. There are sternal wires from previous surgery and transvenous cardiac pacemaker again seen. There is infiltrate at the right upper lobe. The remainder lungs appear essentially clear. There is no substantial pleural effusion or pneumothorax identified. There is thoracic spondylosis noted. IMPRESSION: Right upper lobe infiltrate suspicious for pneumonia. Electronically signed by Sandor Rizzo 01/11/2019 8:54 PM
[2019-01-11 21:02] LABS: INR 1.38; PROTIME 17.2 Seconds (11.0-16.0)
--- NOTE | 2019-01-11 21:02 | EKG Report ---
Test Performed on : 01/11/2019 8:28:21 PM Test Reason : SOB Blood Pressure : / mmHG Vent. Rate : 086 BPM Atrial Rate : 082 BPM P-R Int : 000 ms QRS Dur : 144 ms QT Int : 438 ms P-R-T Axes : 000 -60 195 degrees QTc Int : 524 ms Undetermined rhythm Left axis deviation Left bundle branch block Abnormal ECG When compared with ECG of 17-DEC-2018 06:41, Current undetermined rhythm precludes rhythm comparison, needs review Unconfirmed Result
[2019-01-11 21:03] LABS: PTT 42.6 Seconds (22.3-41.8)
[2019-01-11 21:41] LABS: ALB/GLOB RATIO 2.1; ALBUMIN 3.7 g/dL (3.5-5.0); CALCIUM 8.5 mg/dL (8.8-10.2); CREATININE 1.6 mg/dL (0.7-1.2); POTASSIUM 4.2 mmol/L (3.5-5.1); TOTAL BILIRUBIN 0.82 mg/dL (0.20-1.00); TOTAL PROTEIN 5.5 g/dL (6.3-8.3)
[2019-01-11] MEDS ORDERED: ROCEPHIN 1 GM in NS 50 ML IV ONE (21:53)
[2019-01-11] MEDS ORDERED: ZITHROMAX 500 MG/NS 500 MG/250 ML IVPB IV ONE (21:53)
[2019-01-11] MEDS ORDERED: DUONEB (A & A) INH PRN (22:23)
[2019-01-11] MEDS ORDERED: NS 1,000 ML IV SCH (22:30)
[2019-01-11] MEDS ORDERED: MIRALAX PO PRN (23:03)
[2019-01-11] MEDS: COREG PO SCH (23:30)
[2019-01-11] MEDS: NORCO-10 PO PRN (23:30)
[2019-01-11] MEDS: DUONEB (A & A) INH SCH (23:46)
[2019-01-12] MEDS: DUONEB (A & A) INH SCH ×6 (03:41→23:20)
[2019-01-12 06:03] LABS: IRON SATURATION 6 %; TIBC 201 ug/dL; TOTAL IRON 12 ug/dL (53-167); UNBOUND IRON 189 ug/dL (112-346)
[2019-01-12 06:16] LABS: FERRITIN 196 ng/mL (30-400)
[2019-01-12] MEDS: SYNTHROID PO SCH (06:18)
[2019-01-12] MEDS: LYRICA PO SCH ×2 (06:28→17:19)
[2019-01-12] MEDS: NORCO-10 PO PRN ×2 (06:43→19:53)
--- NOTE | 2019-01-12 07:04 | HISTORY AND PHYSICAL ---
CHIEF COMPLAINT: Shortness of breath. HISTORY OF PRESENT ILLNESS: Mr. Adama Siegel is an 83-year-old male with a history of multiple medical conditions including congestive heart failure, chronic kidney disease, hypothyroidism, COPD, coronary artery disease, hypertension, chronic atrial fibrillation, gastroesophageal reflux disease, benign prostatic hypertrophy. He presents to the hospital because of shortness of breath which has been ongoing for about 2 days. He also describes having a cough productive of whitish sputum. No chest pain. No wheezing. No cigarette smoking. No hemoptysis. X-ray of the chest done at the time of presentation showed evidence of right upper lobe infiltrate suspicious for pneumonia. The patient now will be admitted to the floor for further management. PAST MEDICAL HISTORY: Congestive heart failure, ischemic cardiomyopathy. The patient also has a pacemaker/defibrillator, chronic kidney disease, hypothyroidism, COPD, coronary artery disease, hypertension, chronic atrial fibrillation, benign prostatic hypertrophy, peripheral neuropathy, gastroesophageal reflux disease, hyperlipidemia, gout, iron deficiency anemia. PAST SURGICAL HISTORY: CABG, cholecystectomy, left above-knee amputation, bilateral carpal tunnel release surgery. SOCIAL HISTORY: No history of cigarette smoking, alcohol, or drug use. FAMILY HISTORY: Positive for cancer. ALLERGIES: The patient is allergic to codeine. MEDICATIONS: His medications include the followin. Flomax 0.4 mg at bedtime. 2. Aspirin 81 mg p.o. daily. 3. Allopurinol 100 p.o. twice a day. 4. Ferrous fumarate 324 mg p.o. daily. 5. DuoNeb 3 times a day as needed. 6. Potassium 8 mEq p.o. twice a day. 7. Milk of magnesia daily as needed. 8. Tylenol 650 p.o. q.4 hours as needed. 9. Atorvastatin 40 mg p.o. daily. 10. Coreg 12.5 mg p.o. twice a day. 11. Lasix 80 mg p.o. daily. 12. Lyrica 50 mg p.o. twice a day. 13. MiraLAX 17 g twice a day. 14. [place] 10 every 6 hours p.r.n. 15. Protonix 40 mg p.o. daily. 16. Synthroid 125 mcg p.o. once a day. REVIEW OF SYSTEMS: Constitutional: No fever. 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 Eyes: Uses glasses. ENT: No sinus problems. No hearing loss. Gastrointestinal: No nausea, vomiting, or diarrhea. Has constipation. : No dysuria. Dermatology: No skin lesions. Hematology: Has anemia. Musculoskeletal: Has joint pains. Endocrinology: No diabetes or thyroid disease. Allergy/Immunology: No symptoms suggestive of allergic rhinitis. Psychiatry: No anxiety or depression. PHYSICAL EXAMINATION: VITAL SIGNS: Temperature is 98.1 degrees, pulse 81, respiratory rate 18, blood pressure 125/54, oxygen saturation is 99%. HEENT: Atraumatic and normocephalic. Sclerae are anicteric. Extraocular movements intact. No significant oral lesions noted. NECK: No lymphadenopathy or thyromegaly. CARDIOVASCULAR SYSTEM: S1, S2. RESPIRATORY SYSTEM: Has evidence of good air entry bilaterally. ABDOMEN: Soft, nontender. No masses felt. EXTREMITIES: The patient has a left above-knee amputation. CENTRAL NERVOUS SYSTEM: No obvious focal deficits noted. LABS: WBCs 6.52, hematocrit 28.4, with a platelet count of 133,000. INR is 1.38. Sodium is 138, potassium 4.2, chloride is 100, bicarb 20, BUN is 30, creatinine is 1.6. EKG shows left axis deviation with a left bundle branch block. X-ray of the chest shows right upper lobe infiltrate suspicious for pneumonia. ASSESSMENT AND PLAN: 1. Community-acquired pneumonia. Obtain sputum culture as well as blood cultures. Start patient on empiric antibiotics. 2. Chronic obstructive pulmonary disease. Maintain patient on nebulized bronchodilators as needed and also oxygen supplementation as well. 3. Congestive heart failure. Stable. Monitor intakes and outputs, as well as daily weights. 4. Chronic kidney disease. Follow up on renal function. Avoid nephrotoxic agents. 5. Hypothyroidism. Check thyroid function tests. Continue levothyroxine. 6. Coronary artery disease. Asymptomatic. Continue aspirin , beta tiffany and statin. 7. Hypertension. Continue current antihypertensive regimen. 8. Chronic atrial fibrillation. Maintain the patient on a rate-controlling agent. 9. Gastroesophageal reflux disease. Continue proton pump inhibitor. 10. Iron deficiency anemia. Continue iron replacement. 11. Deep vein thrombosis prophylaxis. Sequential compression devices. 12. Gastrointestinal prophylaxis. Proton pump inhibitor. cc: Amador Duong MD [facility]
[2019-01-12] MEDS: ICAR-C PO SCH ×2 (08:02→21:20)
[2019-01-12] MEDS: ZYLOPRIM PO SCH ×2 (08:02→21:20)
[2019-01-12] MEDS: LASIX PO SCH ×2 (08:02→21:20)
[2019-01-12] MEDS: ASPIRIN EC PO SCH (08:02)
[2019-01-12] MEDS: PROTONIX PO SCH ×2 (08:03→21:20)
[2019-01-12] MEDS: MICRO-K PO SCH (08:03)
[2019-01-12] MEDS: COREG PO SCH ×2 (12:16→23:26)
--- NOTE | 2019-01-12 14:44 | PROGRESS NOTE ---
DATE: 01/12/2019 SUBJECTIVE: Patient has no major complaints. OBJECTIVE: Blood pressure is 135/64, heart rate of 92, respiratory rate of 24 temperature 98 degrees 100% saturation on 1 L.Cardiovascular: Regular rate and rhythm. Pulmonary: Bilateral breath sounds clear to auscultation. GI: Soft, nontender, nondistended. Bowel sounds are positive. LABORATORY DATA: White count: I do not have any new data. Iron is low at 12 with an iron saturation of 6%. PROBLEM LIST: 1. Community-acquired pneumonia. We will continue antibiotics. He is currently on Rocephin and azithromycin. We will continue to follow closely. 2. Chronic obstructive pulmonary disease exacerbation. His breathing is improved. I do not appreciate any wheezes, rales. 3. Congestive heart failure appears to be compensated. 4. Hypothyroidism. Continue his regular medications. 5. He is complaining of constipation so we will address that issue. DISPOSITION: I anticipate possible discharge in next day or so. He is on home oxygen already just as needed though so presumably with it. I will repeat his labs tomorrow and continue to follow. He will need repeat chest x-ray in 4 to 6 weeks just to document clearing of his infiltrate. cc: Prosper Lynch MD
[2019-01-12] MEDS: LACTULOSE PO SCH ×2 (15:01→21:20)
[2019-01-12] MEDS: ROCEPHIN 1 GM in NS 50 ML IV SCH (17:20)
[2019-01-12] MEDS: ZITHROMAX 500 MG/NS 500 MG/250 ML IVPB IV SCH (17:20)
[2019-01-12] MEDS: LIPITOR PO SCH (21:20)
[2019-01-12] MEDS: FLOMAX PO SCH (21:20)
[2019-01-13] MEDS: DUONEB (A & A) INH SCH ×6 (03:38→23:38)
[2019-01-13] MEDS: NORCO-10 PO PRN ×3 (04:23→21:29)
[2019-01-13 05:29] LABS: BASO# 0.01 X1000 (0.0-0.2); BASO% 0.2 % (0.0-0.8); EOS# 0.09 X1000 (0.0-0.7); HEMATOCRIT 26.9 % (42.0-52.0); LYMPH# 0.69 X1000 (1.2-3.4); LYMPH% 15.6 % (20.5-51.1); MCH 25.7 PG (27-31); MCHC 29.7 g/dL (33-37); MCV 86.5 FL (81-99); MONO# 0.43 X1000 (0.11-0.59); MONO% 9.7 % (1.7-9.3); NEUT# 3.21 X1000 (1.4-6.5); NEUT% 72.5 % (42.2-75.2); PLT 130 X1000 (130-400); RBC 3.11 XMIL (4.7-6.1); RDW 17.9 % (11.5-14.5); WBC 4.43 X1000 (4.8-10.8)
[2019-01-13 05:44] LABS: AGAP 14; BUN 20 mg/dL (8-22); CALCIUM 8.9 mg/dL (8.8-10.2); CHLORIDE 101 mmol/L (98-107); COSMO 282; CREATININE 1.1 mg/dL (0.7-1.2); ESTIMATED GFR > 60; GLUCOSE 98 mg/dL (70-104); POTASSIUM 3.6 mmol/L (3.5-5.1); SODIUM 140 mmol/L (136-145); TCO2 25 mmol/L (25-35)
[2019-01-13] MEDS: LYRICA PO SCH ×2 (06:04→18:18)
[2019-01-13] MEDS: SYNTHROID PO SCH (06:04)
[2019-01-13] MEDS: LACTULOSE PO SCH ×3 (10:14→21:29)
[2019-01-13] MEDS: LASIX PO SCH ×2 (10:15→21:30)
[2019-01-13] MEDS: ASPIRIN EC PO SCH (10:15)
[2019-01-13] MEDS: PROTONIX PO SCH ×2 (10:15→21:30)
[2019-01-13] MEDS: ZYLOPRIM PO SCH ×2 (10:15→21:30)
[2019-01-13] MEDS: ICAR-C PO SCH ×2 (10:15→21:32)
[2019-01-13] MEDS: MICRO-K PO SCH ×3 (10:15→21:29)
[2019-01-13] MEDS: COREG PO SCH ×2 (10:21→22:49)
[2019-01-13] MEDS: AFRIN NASAL SPRAY NAS SCH ×3 (10:50→22:53)
--- NOTE | 2019-01-13 12:52 | PROGRESS NOTE ---
DATE: 01/13/2019 SUBJECTIVE: The patient is awake. He is currently bleeding from his left nostril. OBJECTIVE: Vital Signs: Temperature 97.6 degrees, pulse is 80, respiratory rate 18, blood pressure 137/61, oxygen saturation is 98%. HEENT: The patient is bleeding from the left nostril. Cardiovascular System: S1, S2. Respiratory System: Has evidence of good air entry bilaterally. Abdomen: Soft, nontender. No masses felt. Extremities: No significant edema. Central Nervous System: No obvious focal deficits noted. Labs: WBC 4.43, hematocrit 26.9, with a platelet count of 130,000. Sodium is 140, potassium 3.6, chloride is 101, bicarb 25, BUN is 20, creatinine is 1.1. ASSESSMENT AND PLAN: 1. Community-acquired pneumonia. Continue current antibiotic regimen. The patient is currently on Rocephin as well as Zithromax. Blood cultures are currently pending. 2. Chronic obstructive pulmonary disease. Maintain patient on nebulized bronchodilators as needed. 3. Congestive heart failure. Stable. Monitor intakes and outputs, as well as daily weights. 4. Chronic kidney disease. Renal function has currently normalized. Previous BUN and creatinine on 01/11/2019 was 30 and 1.6 but is currently 20 and 1.1. 5. Hypothyroidism. Continue levothyroxine. 6. Coronary artery disease. Asymptomatic. Continue beta-tiffany as well as statin. Aspirin placed on hold in light of epistaxis. 7. Epistaxis. We will recommend Afrin nasal spray and consult with Ears, Nose, and Throat. 8. Hypertension. Continue current antihypertensive regimen. 9. Chronic atrial fibrillation. Continue rate-controlling agent. 10. Gastroesophageal reflux disease. Continue proton pump inhibitor. 11. Iron deficiency anemia. Continue iron replacement. 12. Deep vein thrombosis prophylaxis. Sequential compression devices. 13. Gastrointestinal prophylaxis. Proton pump inhibitor. cc: Amador Duong MD MTDD
[2019-01-13] MEDS: ROCEPHIN 1 GM in NS 50 ML IV SCH (18:19)
[2019-01-13] MEDS: ZITHROMAX 500 MG/NS 500 MG/250 ML IVPB IV SCH (19:03)
[2019-01-13] MEDS: FLOMAX PO SCH (21:29)
[2019-01-13] MEDS: LIPITOR PO SCH (21:30)
--- NOTE | 2019-01-13 21:34 | CONSULTATION ---
DATE OF CONSULTATION: 01/13/2019 REASON FOR CONSULTATION: I was asked to see this patient regarding epistaxis. HISTORY OF PRESENT ILLNESS: He was admitted 2 days ago with pneumonia. He stopped his anticoagulants 2 weeks ago. He is wearing nasal cannulas and states that for the past year he has had difficulty with intermittent epistaxis. May go a week to 3 weeks without bleeding, always on the left, usually secondary to minor trauma. Involves anterior bleeding. No real difficulty with posterior epistaxis. Most recent bleed responded to Afrin nasal spray. PHYSICAL EXAMINATION: Nose: Nasal septal deviation. Right clear. Left with minimal old blood. Has apparent granulation tissue. Post correction mid superior septum. No active bleeding. IMPRESSION: History of recurrent anterior epistaxis left. Wear nasal cannula. Off anticoagulants. PLAN: I have discussed Mr. Siegel after discharge he will come to my office for endoscopic cauterization of granulation tissue left nose and I have discussed with nurses if any recurrence of bleeding should respond to Curtis-Synephrine or Afrin soaked cotton pledgets in the left nostril. Call if any problems with epistaxis. cc: Bienvenido Kirk MD
[2019-01-14] MEDS: DUONEB (A & A) INH SCH ×6 (03:16→23:00)
[2019-01-14] MEDS: NORCO-10 PO PRN ×3 (05:49→23:18)
[2019-01-14] MEDS: LYRICA PO SCH ×2 (05:49→17:13)
[2019-01-14] MEDS: LACTULOSE PO SCH ×2 (09:23→21:30)
[2019-01-14] MEDS: PROTONIX PO SCH ×2 (09:25→21:30)
[2019-01-14] MEDS: ZYLOPRIM PO SCH ×2 (09:25→21:30)
[2019-01-14] MEDS: MICRO-K PO SCH ×2 (09:25→21:29)
[2019-01-14] MEDS: LASIX PO SCH ×2 (09:25→21:30)
[2019-01-14] MEDS: ICAR-C PO SCH ×2 (09:26→21:30)
[2019-01-14] MEDS ORDERED: BLISTEX MEDICATED BERRY LIP BALM TOP PRN (09:32)
[2019-01-14] MEDS: COREG PO SCH ×2 (11:27→23:18)
[2019-01-14] MEDS: AFRIN NASAL SPRAY NAS SCH ×2 (11:28→23:19)
--- NOTE | 2019-01-14 16:32 | PROGRESS NOTE ---
DATE: 01/14/2019 SUBJECTIVE: This is an 83-year-old with history of multiple medical conditions including congestive heart failure, chronic kidney disease, hypothyroidism, COPD, coronary artery disease, hypertension, chronic atrial fib, gastroesophageal reflux disease, benign prostatic hypertrophy, sent to the hospital with shortness of breath. It has been ongoing for a couple days. This was on 01/11/2019 and he was admitted with community-acquired pneumonia, underlying COPD exacerbation. He is on bronchodilators, antibiotics, O2 supplementation. He has a history of congestive heart failure which appeared to be fairly stable and history of chronic atrial fibrillation. He says he is feeling better. His breathing is a little better. He has not been coughing much. He remains afebrile. OBJECTIVE: Vital signs: Temperature 97.8 degrees, pulse 59, respirations 18, blood pressure 132/77. HEENT: Pupils are equal and round. Lungs: Clear in all lung victor. Cardiovascular: Regular rhythm and rate without murmur or S3. Abdomen: Soft. Skin: Warm and dry. Urine output is over 1,000 mL. ASSESSMENT AND PLAN: 1. Appreciate Dr. Kirk seeing him. He saw him regarding epistaxis, history of recurrent anterior epistaxis on the left. He is wearing nasal cannula. He is off anticoagulants. He will plan to go to Dr. Kirk's office for endoscopic cauterization of granulation tissue in the left nose as an outpatient. In the meantime, he responded to Curtis-Synephrine or Afrin soaked cotton pledges in the left nostril. 2. He is complaining he wants more food, so we will put him on a regular diet. 3. Community-acquired pneumonia. Currently on Rocephin as well as Zithromax. Clinically seems to be improving. Sputum culture showed gram-positive cocci and 3+ white blood cells. 4. Chronic kidney disease. Renal function appears to be stable. 5. History of coronary artery disease. Not having any symptoms of coronary ischemia at this time. 6. Epistaxis, as above. 7. Hypertension. Blood pressure well controlled. 8. Chronic atrial fibrillation, rate controlled. 9. Gastroesophageal reflux. 10. Iron deficiency anemia. Continue iron replacement. REVIEW OF ORDERS: I do not see any change. He does have a history of gout. He is on allopurinol 100 mg b.i.d., Flomax 0.4 mg at bedtime, Lipitor 40 mg at bedtime, Lasix 20 mg p.o. b.i.d., iron carbonyl ascorbic acid 1 p.o. b.i.d., Synthroid 112 mcg p.o. daily, MiraLAX 17 g p.o. b.i.d. p.r.n., potassium chloride 8 mEq b.i.d., Lyrica 50 mg p.o. b.i.d., ceftriaxone 1 g IV q.24 hours, and azithromycin 500 mg IV q.24 hours. cc: Tate Stephens MD
[2019-01-14] MEDS: ROCEPHIN 1 GM in NS 50 ML IV SCH (17:20)
[2019-01-14] MEDS: ZITHROMAX 500 MG/NS 500 MG/250 ML IVPB IV SCH (18:21)
[2019-01-14] MEDS: LIPITOR PO SCH (21:30)
[2019-01-14] MEDS: FLOMAX PO SCH (21:30)
[2019-01-15] MEDS: DUONEB (A & A) INH SCH ×6 (03:37→23:26)
[2019-01-15] MEDS: NORCO-10 PO PRN ×4 (05:30→23:43)
[2019-01-15] MEDS: SYNTHROID PO SCH ×3 (05:30→10:34)
[2019-01-15] MEDS: LYRICA PO SCH ×2 (05:31→17:45)
[2019-01-15] MEDS: MICRO-K PO SCH ×3 (10:27→20:06)
[2019-01-15] MEDS: ZYLOPRIM PO SCH ×2 (10:28→19:59)
[2019-01-15] MEDS: PROTONIX PO SCH ×3 (10:28→20:06)
[2019-01-15] MEDS: LACTULOSE PO SCH ×2 (10:28→19:59)
[2019-01-15] MEDS: LASIX PO SCH ×3 (10:28→20:07)
[2019-01-15] MEDS: COREG PO SCH ×2 (10:28→23:04)
[2019-01-15] MEDS: AFRIN NASAL SPRAY NAS SCH (10:31)
[2019-01-15] MEDS: ICAR-C PO SCH ×2 (10:33→19:59)
--- NOTE | 2019-01-15 14:06 | PROGRESS NOTE ---
DATE: 01/15/2019 SUBJECTIVE: Mr. Siegel is feeling better. His breathing is doing a little bit better. He would like to pursue going to rehab. He does not like the food but he has eaten some. OBJECTIVE: Temperature 97.9 degrees, pulse 68, respirations 17, blood pressure 124/56. Pupils are equal and round. Lungs are clear in all lung victor. Cardiovascular Examination: Regular rhythm and rate without murmur or S3. Urine output 1700 mL. ASSESSMENT AND PLAN: 1. He has not had any further nosebleed. We are going to set him up to see Dr. Kirk as an outpatient. He has cauterized a little granulation tissue on the left side of his nose. He has had recurrent anterior epistaxis on the left but no further bleeding. 2. Encourage oral intake. 3. Community-acquired pneumonia, which seems to be doing better. I will check another chest x- ray in the morning. 4. Chronic kidney disease. Kidney function is stable. 5. History of coronary artery disease. I do not see any sign of active ischemia at this time. 6. Hypertension. 7. Atrial fibrillation, rate is controlled. 8. History of gastroesophageal reflux. Continue proton pump inhibitor. 9. Iron deficiency anemia. Continue his iron. 10. We will check a review of his orders. I do not see any change at this point. He does have a history of gout. He is on allopurinol. We will check another chest x-ray in the morning. cc: Tate Stephens MD
--- NOTE | 2019-01-15 14:11 | Diag Imaging Result Doc PS360 ---
EXAM: CHEST-PORTABLE HISTORY: pneumonia TECHNIQUE: Single view COMPARISON: 01/11/2019 FINDINGS: Persistent right upper lobe infiltrates. Heart is enlarged and there is mild pulmonary edema. Sternal wires and surgical clips and a left-sided pacemaker. No pleural effusions identified. IMPRESSION: Persistent pulmonary edema and right upper lobe pneumonia Electronically signed by Marlon Garcia 01/15/2019 2:08 PM
[2019-01-15] MEDS: ZITHROMAX PO SCH (17:46)
[2019-01-15] MEDS: ROCEPHIN 1 GM in NS 50 ML IV SCH (17:46)
[2019-01-15] MEDS: LIPITOR PO SCH ×2 (19:58→20:07)
[2019-01-15] MEDS: FLOMAX PO SCH ×2 (19:58→20:06)
[2019-01-16] MEDS: AFRIN NASAL SPRAY NAS SCH ×2 (00:02→11:04)
[2019-01-16] MEDS: DUONEB (A & A) INH SCH ×5 (03:29→21:55)
[2019-01-16] MEDS ORDERED: CALMOSEPTINE OINTMENT TOP PRN (05:17)
[2019-01-16] MEDS: LYRICA PO SCH ×2 (06:05→17:35)
[2019-01-16] MEDS: NORCO-10 PO PRN ×3 (06:05→18:47)
[2019-01-16] MEDS: SYNTHROID PO SCH (06:05)
[2019-01-16] MEDS: LASIX PO SCH ×2 (09:54→21:11)
[2019-01-16] MEDS: PROTONIX PO SCH ×2 (09:55→21:10)
[2019-01-16] MEDS: MICRO-K PO SCH ×2 (09:56→21:10)
[2019-01-16] MEDS: ZYLOPRIM PO SCH ×2 (09:56→21:11)
[2019-01-16] MEDS: ICAR-C PO SCH ×3 (10:00→21:17)
[2019-01-16] MEDS: LACTULOSE PO SCH ×4 (10:00→21:18)
[2019-01-16] MEDS: COREG PO SCH ×2 (10:09→23:16)
--- NOTE | 2019-01-16 17:32 | PROGRESS NOTE ---
DATE: 01/16/2019 SUBJECTIVE: Mr. Siegel does feel a little better, a little stronger. Breathing is more comfortable. He was hoping to go to rehab. I am not sure he will be eligible. OBJECTIVE: Vital Signs: Temperature is 97.9 degrees, pulse 80, respirations 16, blood pressure 140/67. HEENT: Pupils are equal and round. Lungs: Clear in all lung victor. Cardiovascular: Regular rate without murmur or S3. Abdomen: Soft skin is warm and dry. Urine Output: 1300 mL. IMAGING: Chest x-ray from yesterday: Persistent pulmonary edema, right upper lobe pneumonia. Clinically doing much better. ASSESSMENT AND PLAN: 1. He has had not had any further nosebleeds. Will follow up with Dr. Kirk as an outpatient. 2. Oral intake is good. He is eating well. 3. Community-acquired pneumonia, improving. Suspect he could go tomorrow. He would like to go to rehab. I do not know if he will be eligible for it. 4. Chronic kidney disease. Kidney function is stable. Volume status and electrolytes look good. 5. Coronary artery disease. No sign of active ischemia. 6. Hypertension. 7. Atrial fibrillation. Rate is controlled. 8. Gastroesophageal reflux. Continue his proton pump inhibitor. 9. Iron-deficiency anemia. He is on iron. Reviewed his lab from the 2nd. I will check electrolytes and CBC and magnesium again in the morning, and hopefully he can be discharged, either to go home or to try and get into rehab. cc: Tate Stephens MD
[2019-01-16] MEDS: ZITHROMAX PO SCH (17:35)
[2019-01-16] MEDS: ROCEPHIN 1 GM in NS 50 ML IV SCH (17:36)
--- NOTE | 2019-01-16 21:01 | PROVIDER DOCUMENTATION ---
This chart was entered by Mariana Clement Scribe, acting as scribe for Senthil Sandra MD. HPI-Respiratory General - General Chief Complaint: Shortness of Breath Stated Complaint: SOB, ACHING Time Seen by Provider: 01/11/19 21:51 Source: patient Allergies/Adverse Reactions: Patient Allergies Allergy/AdvReac Type Severity Reaction Status Date / Time codeine [Codeine] AdvReac Intermediate LETHARGIC Verified 01/11/19 21:29 Home Medications: Home Medication List Medication Instructions Recorded Confirmed Last Taken Type Allopurinol 100 mg PO BID 12/02/16 01/11/19 01/11/19 History Aspirin [Adult Low Dose Aspirin EC] 81 mg PO DAILY 12/02/16 01/11/19 01/11/19 History Pantoprazole [Protonix] 40 mg PO BID tablet 08/27/17 01/11/19 01/11/19 Rx Tamsulosin [Flomax] 0.4 mg PO QHS 11/17/17 01/11/19 01/11/19 History Potassium Chloride E.r. [Micro-K] 8 meq PO BID 11/25/17 01/11/19 01/11/19 History Carvedilol [Coreg] 12.5 mg PO Q12H tablet 12/04/17 01/11/19 01/11/19 Rx Levothyroxine [Synthroid] 112 microgm PO DAILY@0700 tablet 12/04/17 01/11/19 01/11/19 Rx Ipratropium/Albuterol Sulfate 3 ml INHALATION TID 12/16/18 01/11/19 01/11/19 History [Iprat-Albut 0.5-3(2.5) mg/3 ml] ATORVAstatin [Lipitor] 40 mg PO QHS #30 tab 12/19/18 01/11/19 01/11/19 Rx Hydrocodone/Acetaminophen [Home 1 ea PO Q6H PRN PRN #20 tab 12/19/18 01/11/19 01/11/19 Rx 10-325 Tablet] Iron Carbonyl/Ascorbic Acid 1 ea PO BID tab 12/19/18 01/11/19 01/11/19 Rx [Icar-C] Polyethylene Glycol 3350 [Miralax] 17 gm PO BID PRN PRN #0 powder, 12/19/18 01/11/19 01/11/19 Rx packet Pregabalin [Lyrica] 50 mg PO BID #60 cap 12/19/18 01/11/19 01/11/19 Rx Furosemide [Lasix] 20 mg PO BID 01/11/19 01/11/19 01/11/19 History - History of Present Illness-Resp Nature of Presenting Problem: 83yom presents to ED cc SOB, dry cough when lying down and achiness in chest for 2 days. Pt reports he is on 3lit. 02 PRN but it hasn't helped. Pt denies fever/n/v/d. Pt has hx of CHF, COPD and CA. Quality of Pain: reports: tightness Severity in ED: reports: moderate Onset/Duration: reports: 2 days ago Timing: reports: still present, getting worse Cough Quality/Degree: reports: dry cough Current Respiratory Medication Therapy: Initiated see nurses note Modifying Factors: worse with: exertion, lying down Associated Symptoms: reports: chest pain/soreness, cough, shortness of breath Similar Symptoms Previously?: No Recently seen or treated by another doctor?: No Review of Systems - Adult - REVIEW OF SYSTEMS - ADULT Constitutional: reports: see HPI, fatique. denies: chills, fever Eyes: reports: no symptoms reported Ears, Nose, Mouth & Throat: reports: no symptoms reported Cardiovascular: reports: see HPI, chest pain (achiness). denies: palpitations Respiratory: reports: see HPI, cough, shortness of breath Gastrointestinal: reports: see HPI. denies: diarrhea, nausea, vomiting Genitourinary: reports: no symptoms reported Musculoskeletal: reports: no symptoms reported Integumentary: reports: no symptoms reported Neurological: reports: no symptoms reported Psychiatric: reports: no symptoms reported Endocrine: reports: no symptoms reported Hematologic/Lymphatic: reports: no symptoms reported Allergic/Immunologic: reports: no symptoms reported All Other Systems: Reviewed and Negative Past History - Adult - PAST MEDICAL HISTORY-ADULT Review of Records: reports: Nursing Assessment Review, Medications Reviewed, Social history reviewed & non-contributory. Major Childhood Illnesses: reports: denies history Cardiovascular: reports: cardiac disease, CHF, HTN, hyperlipidemia, CA Respiratory: reports: COPD Gastrointestinal: reports: denies history Obstetrical/Gynecological: reports: denies history Genitourinary: reports: other (prostate disease with prostate surgery) Musculoskeletal: reports: denies history Neurological: reports: denies history Psychiatric: reports: denies history Endocrine/Immune: reports: thyroid disorder Other Conditions: reports: denies history - PRIOR SURGERIES/PROCEDURES Surgical/Procedure History: reports: CABG, cholecystectomy - IMMUNIZATION STATUS Childhood Immunizations: See Nurse Assessment Flu Vaccine: See Nurse Assessment - FAMILY HISTORY Family History: reviewed, not pertinent - SOCIAL HISTORY Smoking: quit greater than 1 year Physical Exam-General - PHYSICAL EXAM-ADULT Initial Vital Signs Reviewed: Yes - CONSTITUTIONAL General Appearance: appears well, alert. negative: anxious, combative - EYES Eyes: PERRL/EOMI, pink conjunctivae. negative: photophobia - HEAD, EARS, NOSE, MOUTH & THROAT HENMT: normocephalic/atraumatic, moist mucous membranes. negative: angioedema - NECK Neck: normal inspection - RESPIRATORY Respiratory: chest non-tender, lungs clear, normal breath sounds. negative: stridor, wheezing - CARDIOVASCULAR Cardiovascular: normal peripheral pulses, regular rate, rhythm, no edema. negative: bradycardia, tachycardia - GASTROINTESTINAL (ABDOMEN) Abdominal Exam: normal bowel sounds, non tender, soft. negative: rigid, rebound - MUSCULOSKELETAL Extremity: normal inspection. negative: deformity - SKIN Integumentary: normal color. negative: diaphoresis, jaundice - PSYCHIATRIC Psych/Mental Status: normal mood/affect, oriented x 3. negative: anxious, disheveled - HEART Score HEART Score: History: Moderately Suspicious HEART Score: ECG: Non-Specific Repolarization Disturbance/LBBB/PM HEART Score: Age: > or = 65 Years HEART Score: Risk Factors for Atherosclerotic Disease: > or = 3 Risk Factors or History of Atherosclerotic Disease HEART Score: Troponin: < or = Normal Limit Total HEART Score:: 6 Progress - PLAN OF CARE/RESULTS Progress/Plan/Lab Results: Vital Signs - 8 hr 01/11/19 20:29 Temperature 99.0 F Pulse Rate 80 Respiratory Rate 20 Blood Pressure 130/60 O2 Sat by Pulse Oximetry 94 L Laboratory Results - last 24 hr 01/11/19 01/11/19 01/11/19 20:33 20:33 20:33 WBC 6.52 RBC 3.28 L Hgb 8.5 L Hct 28.4 L MCV 86.6 MCH 25.9 L MCHC 29.9 L RDW Std Deviation 17.9 H Plt Count 133 MPV 13.0 H Immature Gran % (Auto) 0.0 Neut % (Auto) 84.4 H Lymph % (Auto) 8.4 L [place] % (Auto) 6.1 Eos % (Auto) 0.9 Baso % (Auto) 0.2 Immature Gran # (Auto) 0.00 Neut # (Auto) 5.50 Lymph # (Auto) 0.55 L [place] # (Auto) 0.40 Eos # (Auto) 0.06 Baso # (Auto) 0.01 PT INR PTT (Actin FS) Sodium 138 Potassium 4.2 Chloride 100 Carbon Dioxide 20 L Anion Gap 18 BUN 30 H Creatinine 1.6 H Estimated GFR/1.73 m2 42 BUN/Creatinine Ratio 19 Glucose 151 H Calculated Osmolality 285 Calcium 8.5 L Total Bilirubin 0.82 AST 18 ALT 12 Alkaline Phosphatase 117 Creatine Kinase 60 Troponin T Mnm-N-Cevolrvejtw Pept 9861 H Total Protein 5.5 L Albumin 3.7 Globulin 1.8 Albumin/Globulin Ratio 2.1 01/11/19 01/11/19 20:33 20:33 WBC RBC Hgb Hct MCV MCH MCHC RDW Std Deviation Plt Count MPV Immature Gran % (Auto) Neut % (Auto) Lymph % (Auto) [place] % (Auto) Eos % (Auto) Baso % (Auto) Immature Gran # (Auto) Neut # (Auto) Lymph # (Auto) [place] # (Auto) Eos # (Auto) Baso # (Auto) PT 17.2 H INR 1.38 PTT (Actin FS) 42.6 H Sodium Potassium Chloride Carbon Dioxide Anion Gap BUN Creatinine Estimated GFR/1.73 m2 BUN/Creatinine Ratio Glucose Calculated Osmolality Calcium Total Bilirubin AST ALT Alkaline Phosphatase Creatine Kinase Troponin T 0.021 Fyg-L-Dwylibpauhs Pept Total Protein Albumin Globulin Albumin/Globulin Ratio Orders Category Date Time Status Cardiac Monitoring DIRECTED Care 01/11/19 20:24 Active Oxygen Therapy- ED Nursing DIRECTED Care 01/11/19 20:24 Active Saline Loc NOW Care 01/11/19 20:24 Active CHEST-2 VIEWS [RAD] Stat Exams 01/11/19 20:24 Completed BLOOD CULTURE [BLDCUL] Stat Lab 01/11/19 21:52 Ordered CBC WITH ELECTRONIC DIFF [HEME] Stat Lab 01/11/19 20:33 Completed CK PROFILE [SP CHEM] Stat Lab 01/11/19 20:33 Completed COMPREHENSIVE METABOLIC PANEL [CHEM] Stat Lab 01/11/19 20:33 Completed LACTATE, PLASMA [CHEM] Stat Lab 01/11/19 21:52 Uncollected PRO B-NATRIURETIC PEPTIDE Stat Lab 01/11/19 20:33 Completed PROTIME WITH INR [COAG] Stat Lab 01/11/19 20:33 Completed PTT [COAG] Stat Lab 01/11/19 20:33 Completed TROPONIN T Stat Lab 01/11/19 20:33 Completed Azithromycin 500 mg/Ns [Zithromax 500 mg/Ns] Med 01/11/19 21:53 Active 500 mg in 250 ml IV NOW CefTRIAXONE [Rocephin] 1 gm Med 01/11/19 21:53 Active 0.9% Sodium Chloride Inj [Ns] 50 ml IV NOW CP/SOB/Palp >45 yrs of Age Stat Oth 01/11/19 20:23 Ordered EKG [EKG] Stat Ther 01/11/19 20:24 Draft Result Diagrams: 01/11/19 20:33 01/11/19 20:33 - EKG 1 Time of EKG reading by physician:: 20:29 EKG Read and Signed by:: Senthil Sandra EKG Interpretation (*Must complete 3 of following elements*): Abnormal Rate: 87 Rhythm: AFIB w/ventricular paced complexes [place]: left QRS: LBB - CONSULTS/PCP/HOSPITALIST Notification #1 *Consult/PCP/Hospitalist*: Katia/CODING SUPPORT SPECIALIST Time Discussed: 22:03 Consult Disposition: Admit (Dr. Duong accepted pt) Departure - Departure Date of Disposition Decision: 01/11/19 Time of Disposition Decision: 22:00 DIAGNOSIS: Pneumonia Disposition: ADMITTED INPATIENT 09 Certified Medical Emergency: Emergent Condition: Stable Referrals and Follow-Ups: Zhen Rapp [Primary Care Provider] - - Critical Care Note This patient required my direct & personal management of CC.: No Attestation - Physician/ THO Attestation Patient care was provided by Advanced Practice Provider:: No The physician spent face to face time with patient:: Yes Advanced Practice Provider documentation review:: Supervising physician onsite and consulted in the evaluation and care of this patient. The physician did have a face to face encounter with the patient. This chart was documented by the indicated scribe, (Mariana Clement Scribe) and accurately reflects the services I performed and decisions made by me, Senthil Sandra MD, as attested by the provider's signature.
[2019-01-16] MEDS: LIPITOR PO SCH (21:10)
[2019-01-16] MEDS: FLOMAX PO SCH (21:11)
[2019-01-17] MEDS: DUONEB (A & A) INH SCH ×7 (00:10→23:20)
[2019-01-17] MEDS: AFRIN NASAL SPRAY NAS SCH ×2 (04:05→11:41)
[2019-01-17] MEDS: NORCO-10 PO PRN ×3 (04:09→18:16)
[2019-01-17] MEDS: LYRICA PO SCH ×2 (06:14→18:14)
[2019-01-17] MEDS: SYNTHROID PO SCH (06:14)
[2019-01-17 06:46] LABS: BASO# 0.01 X1000 (0.0-0.2); BASO% 0.2 % (0.0-0.8); EOS# 0.18 X1000 (0.0-0.7); EOS% 3.4 % (0.0-10.0); HEMATOCRIT 28.4 % (42.0-52.0); HEMOGLOBIN 8.2 g/dL (14.0-18.0); LYMPH# 0.73 X1000 (1.2-3.4); LYMPH% 13.9 % (20.5-51.1); MCH 25.1 PG (27-31); MCHC 28.9 g/dL (33-37); MCV 86.9 FL (81-99); MONO% 5.7 % (1.7-9.3); MPV 11.5 FL (7.4-10.4); NEUT# 4.03 X1000 (1.4-6.5); NEUT% 76.8 % (42.2-75.2); PLT 204 X1000 (130-400); RBC 3.27 XMIL (4.7-6.1); RDW 17.8 % (11.5-14.5); WBC 5.25 X1000 (4.8-10.8)
[2019-01-17 06:51] LABS: AGAP 12; BUN 14 mg/dL (8-22); CALCIUM 9.1 mg/dL (8.8-10.2); CHLORIDE 104 mmol/L (98-107); COSMO 284; ESTIMATED GFR > 60; GLUCOSE 101 mg/dL (70-104); MAGNESIUM 1.9 mg/dL (1.5-2.7); POTASSIUM 4.3 mmol/L (3.5-5.1); SODIUM 142 mmol/L (136-145); TCO2 26 mmol/L (25-35)
[2019-01-17 07:38] LABS: BANDS 2 % (0-1); EOS 2 % (1-10); HYPOCHROM 1+; LYMPHS 14 % (21-51); SEGS 82 % (42-75)
--- NOTE | 2019-01-17 09:10 | Diag Imaging Result Doc PS360 ---
CHEST-2 VIEWS - 01/17/2019 INDICATION: pneumonia COMPARISON: 01/15/2019 FINDINGS: There is persistent alveolar infiltrate in the right upper lobe consistent with pneumonia. There is cardiomegaly and pulmonary vascular congestion. No obvious edema. There are probably trace pleural effusions. IMPRESSION: No change in the right upper lobe infiltrate/pneumonia. Cardiomegaly. Trace pleural effusions. Electronically signed by Christopher Fernando 01/17/2019 9:07 AM
[2019-01-17] MEDS: LASIX PO SCH ×2 (10:00→21:19)
[2019-01-17] MEDS: PROTONIX PO SCH ×2 (10:00→21:19)
[2019-01-17] MEDS: LACTULOSE PO SCH ×2 (10:01→21:20)
[2019-01-17] MEDS: ICAR-C PO SCH ×2 (10:01→21:19)
[2019-01-17] MEDS: ZYLOPRIM PO SCH ×2 (10:01→21:19)
[2019-01-17] MEDS: MICRO-K PO SCH ×2 (10:01→21:18)
[2019-01-17] MEDS: COREG PO SCH (11:41)
--- NOTE | 2019-01-17 14:43 | PROGRESS NOTE ---
DATE: 01/17/2019 SUBJECTIVE: Mr. Siegel just does not feel good today. He says he just does not feel very strong, feels like his breathing is maybe a little better, but just feels bad and does not want to go home. OBJECTIVE: Vital Signs: Temp 97.9 degrees, pulse 79, respirations 18, blood pressure 150/62. HEENT: Pupils are equal and round. Lungs: Clear in all lung victor. Cardiovascular: Regular rhythm and rate without murmur or S3. Abdomen: Soft. Skin: Warm and dry. Urine output is 1500 mL. IMAGING: Chest x-ray: No change in right upper lobe infiltrate, pneumonia, trace pleural effusion. ASSESSMENT AND PLAN: 1. Pneumonia. He is improving clinically. Continue present bronchial hygiene and antibiotics. 2. Oral intake is improving. 3. Chronic kidney disease. Kidney function stable. 4. Coronary artery disease. No sign of active ischemia. 5. Hypertension. 6. Atrial fibrillation. Rate is controlled. 7. Gastroesophageal reflux. REVIEW OF HIS ORDERS: I do not see any change. Recent labs unremarkable as well. White count 5250, hematocrit is 28, hemoglobin 8.2, platelet count 204,000. Sodium 142, potassium 4.3, chloride 104, BUN 14, creatinine 1.0. cc: Tate Stephens MD MTDD
[2019-01-17] MEDS: ZITHROMAX PO SCH (18:14)
[2019-01-17] MEDS: ROCEPHIN 1 GM in NS 50 ML IV SCH (18:14)
[2019-01-17] MEDS: FLOMAX PO SCH (21:19)
[2019-01-17] MEDS: LIPITOR PO SCH (21:19)
[2019-01-18] MEDS: COREG PO SCH ×3 (00:24→23:50)
[2019-01-18] MEDS: NORCO-10 PO PRN ×4 (00:24→23:50)
[2019-01-18] MEDS: AFRIN NASAL SPRAY NAS SCH ×3 (00:25→23:50)
[2019-01-18] MEDS: DUONEB (A & A) INH SCH ×6 (03:22→23:35)
[2019-01-18] MEDS: LYRICA PO SCH ×2 (06:31→17:46)
[2019-01-18] MEDS: SYNTHROID PO SCH (06:31)
[2019-01-18] MEDS: PROTONIX PO SCH ×2 (09:58→20:28)
[2019-01-18] MEDS: LACTULOSE PO SCH ×2 (09:58→20:29)
[2019-01-18] MEDS: ICAR-C PO SCH ×2 (09:58→20:29)
[2019-01-18] MEDS: LASIX PO SCH ×2 (09:58→20:28)
[2019-01-18] MEDS: MICRO-K PO SCH ×2 (09:59→20:28)
[2019-01-18] MEDS: ZYLOPRIM PO SCH ×2 (09:59→20:28)
--- NOTE | 2019-01-18 12:14 | PROGRESS NOTE ---
DATE: 01/18/2019 SUBJECTIVE: Mr. Siegel still does not feel real good. He was eating lunch pretty good. He is breathing comfortably. OBJECTIVE: Vital signs: He remains afebrile, temperature 97.4 degrees, pulse 70, respirations 16, blood pressure 123/54. HEENT: Pupils are equal and round. Lungs: Are clear in all lung victor. Cardiovascular: Regular rate without murmur or S3. Abdomen: Soft. Skin: Is warm and dry. ASSESSMENT AND PLAN: 1. Pneumonia. Continues to improve clinically. Continue his present bronchial hygiene and antibiotics. 2. Oral intake is improving. He does not like the food. 3. Chronic kidney disease. Kidney function stable. 4. Coronary artery disease. 5. Hypertension. 6. Atrial fibrillation. Rate is controlled. 7. Gastroesophageal reflux disease. REVIEW OF THE CURRENT ORDERS: I do not see any change. We will continue his physical therapy. Does not want to go home today. cc: Tate Stephens MD
[2019-01-18] MEDS: ZITHROMAX PO SCH (17:47)
[2019-01-18] MEDS: ROCEPHIN 1 GM in NS 50 ML IV SCH (17:48)
[2019-01-18] MEDS: LIPITOR PO SCH (20:28)
[2019-01-18] MEDS: FLOMAX PO SCH (20:28)
[2019-01-19] MEDS: DUONEB (A & A) INH SCH ×6 (03:20→23:01)
[2019-01-19] MEDS: SYNTHROID PO SCH (06:11)
[2019-01-19] MEDS: LYRICA PO SCH ×2 (06:11→19:03)
[2019-01-19] MEDS: NORCO-10 PO PRN ×3 (06:12→19:07)
[2019-01-19] MEDS: ICAR-C PO SCH ×2 (08:00→21:43)
[2019-01-19] MEDS: LASIX PO SCH ×2 (08:00→21:42)
[2019-01-19] MEDS: ZYLOPRIM PO SCH ×2 (08:00→21:41)
[2019-01-19] MEDS: LACTULOSE PO SCH ×2 (08:00→21:42)
[2019-01-19] MEDS: PROTONIX PO SCH ×2 (08:01→21:41)
[2019-01-19] MEDS: MICRO-K PO SCH ×2 (08:01→21:41)
[2019-01-19] MEDS: COREG PO SCH ×2 (11:04→23:30)
[2019-01-19] MEDS: AFRIN NASAL SPRAY NAS SCH (11:04)
--- NOTE | 2019-01-19 15:06 | PROGRESS NOTE ---
DATE: 01/19/2019 SUBJECTIVE: He does feel better. He still has a cough but he is eating well. His strength has improved. Hopefully, he can go home tomorrow. One thing we need to find out is whether he needs oxygen at home. OBJECTIVE: Vital signs: Temperature 97.7 degrees, pulse 86, respirations 18, blood pressure 139/54. HEENT: Pupils are equal and round. Lungs: Are clear in all lung victor. Cardiovascular: Regular rhythm and rate without murmur or S3. Urine output was 2000 mL. ASSESSMENT AND PLAN: 1. Pneumonia. Continues to improve clinically. Will see if he needs oxygen. Continue his current treatment. 2. Oral intake improved. He does not like the food but apparently he ate better yesterday and today. 3. Chronic kidney disease. Kidney function is stable. 4. Coronary artery disease. No sign of active ischemia. 5. Hypertension. 6. Atrial fibrillation. Rate is controlled. 7. Gastroesophageal reflux. REVIEW OF HIS MEDICATIONS: I do not see any change at this point. PLAN: We will check another chest x-ray tomorrow. His last one was on 01/17/2019. No change in right upper lobe infiltrate at that time. I am going to send him down for a PA and lateral and I am hopeful we can get him home and see if needs oxygen. Hopefully, we can wean him off. cc: Tate Stephens MD
[2019-01-19] MEDS: ROCEPHIN 1 GM in NS 50 ML IV SCH (19:04)
[2019-01-19] MEDS: FLOMAX PO SCH (21:41)
[2019-01-19] MEDS: LIPITOR PO SCH (21:42)
[2019-01-20] MEDS: NORCO-10 PO PRN ×3 (00:53→18:19)
[2019-01-20] MEDS: DUONEB (A & A) INH SCH ×4 (04:38→15:34)
[2019-01-20] MEDS: AFRIN NASAL SPRAY NAS SCH ×2 (06:28→12:13)
[2019-01-20] MEDS: LYRICA PO SCH ×2 (06:29→17:26)
[2019-01-20] MEDS: SYNTHROID PO SCH (06:29)
[2019-01-20] MEDS: ICAR-C PO SCH (08:20)
[2019-01-20] MEDS: LASIX PO SCH (08:20)
[2019-01-20] MEDS: PROTONIX PO SCH (08:20)
[2019-01-20] MEDS: MICRO-K PO SCH (08:20)
[2019-01-20] MEDS: LACTULOSE PO SCH (08:22)
[2019-01-20] MEDS: ZYLOPRIM PO SCH (08:23)
--- NOTE | 2019-01-20 09:42 | Diag Imaging Result Doc PS360 ---
EXAM: CHEST-2 VIEWS 01/20/2019 HISTORY: pneumonia TECHNIQUE: PA and lateral chest COMMENT: There is ill-defined opacity in the right upper lobe which was also present on 01/17/2019. This may be slightly improved. IMPRESSION: Minimally improved right upper lobe pneumonia. Advise follow-up until clear. Electronically signed by Dmitry Hutchison 01/20/2019 9:39 AM
[2019-01-20] MEDS: COREG PO SCH (12:12)
[2019-01-20] MEDS: ROCEPHIN 1 GM in NS 50 ML IV SCH (17:27)
--- NOTE | 2019-01-20 18:20 | DISCHARGE SUMMARY ---
ADMISSION DATE: 01/11/2019 DISCHARGE DATE: 01/20/2019 REASON FOR ADMISSION: He is a patient of Dr. Zhen Cherry, and presented with shortness of breath on 01/11/2019. HISTORY: An 83-year-old with a history of multiple medical conditions including congestive heart failure, chronic kidney disease, hypothyroidism, COPD, coronary artery disease, hypertension, chronic atrial fibrillation, gastroesophageal reflux disease, and benign prostatic hypertrophy, who presented to the hospital because of shortness of breath that was ongoing for a couple of days, and described having cough productive of white sputum. No chest pain. No wheezing. No history of cigarette smoking. No hemoptysis. X-ray of the chest done at time of presentation showed evidence of right upper lobe infiltrate suspicious for pneumonia. The patient was admitted. Note that he had COPD, and apparently he is on home O2 already. ADMISSION DIAGNOSES: 1. Community-acquired pneumonia. We obtained sputum cultures, and put him on empiric antibiotic. 2. Chronic obstructive pulmonary disease with home O2 and exacerbation. 3. Congestive heart failure. Volume status seemed to be pretty good. Watched his outputs closely. 4. Chronic kidney disease. Renal function appeared to be stable. 5. Hypothyroidism. Continue his levothyroxine. 6. Coronary artery disease. Did not see any sign of active ischemia. He is already on a beta tiffany and statin. 7. Hypertension. Blood pressure well controlled. 8. Chronic atrial fibrillation, rate was controlled. 9. Gastroesophageal reflux disease. 10. Iron deficiency anemia. We kept him on iron. HOSPITAL COURSE: He showed steady improvement, and we started physical therapy. He had requested maybe going to rehab, but he was not eligible. His original chest x-ray on 01/11 of right upper lobe infiltrate suspicious for pneumonia. He had ears, nose and throat problem because he was having the nosebleed, it looked like anterior epistaxis on the left side. We used some topical Curtis-Synephrine, and he seemed to improve, and had no further bleeding. Chest x-ray repeated on 01/17 no change in the right upper lobe infiltrate or pneumonia at that time. He complained of weakness. Begin physical therapy. He did show minimal improvement radiographically on the chest x-ray with improved right upper lobe pneumonia. It was felt he could go home, and wanted to go home with home health. He already has oxygen set up at home. DISCHARGE MEDICATIONS: 1. He will continue Lipitor 40 mg a day. 2. Allopurinol 100 mg p.o. b.i.d. 3. Aspirin 81 mg a day. 4. Coreg 12.5 mg q.12h. 5. Lasix 20 mg b.i.d. 6. Hydrocodone acetaminophen 10/325 1 q.6 hours p.r.n. 7. Ipratropium and albuterol combination t.i.d. 8. Iron carbonyl and ascorbic acid 1 tablet twice a day. 9. Synthroid 112 mcg p.o. daily. 10. Protonix 40 mg b.i.d. 11. MiraLAX 17 g b.i.d. p.r.n. 12. Potassium chloride ER 80 mEq b.i.d. 13. Lyrica 50 mg b.i.d. 14. Flomax 0.4 mg at bedtime. MICROBIOLOGY: Note, his cultures showed no growth. Blood cultures and sputum was really nonspecific. DISCHARGE INSTRUCTIONS: I am going to give him some Levaquin 500 mg a day for another 7 days. He will follow up with his primary care. cc: Tate Stephens MD
[2019-01-20 18:38] VITALS: BP 145/69
== END 2019-01-20 19:20 | disposition home health service (06) | DRG 194 ==
LOC: ED 20:20 → 1N 22:52 → SUATTDRO 22:52
PROVIDERS: ATTEND Emergency Medicine

== ENCOUNTER 2019-02-25 12:44 | Inpatient (IN) ==
[2019-02-25] MEDS ORDERED: ASPIRIN PO ONE (13:02)
--- NOTE | 2019-02-25 13:18 | Diag Imaging Result Doc PS360 ---
CHEST-2 VIEWS - 02/25/2019 INDICATION: sob COMPARISON: 01/27/2019 FINDINGS: Stable sternotomy changes. Stable biventricular pacemaker. There is worsening cardiomegaly and diffuse pulmonary vascular congestion. No significant infiltrates or edema. No pleural effusion. IMPRESSION: Worsening cardiomegaly and pulmonary vascular congestion. Electronically signed by Christopher Fernando 02/25/2019 1:16 PM
[2019-02-25 13:22] LABS: BASO# 0.01 X1000 (0.0-0.2); BASO% 0.2 % (0.0-0.8); EOS# 0.06 X1000 (0.0-0.7); HEMATOCRIT 30.3 % (42.0-52.0); LYMPH# 0.56 X1000 (1.2-3.4); LYMPH% 9.1 % (20.5-51.1); MCH 25.4 PG (27-31); MCHC 29.7 g/dL (33-37); MCV 85.6 FL (81-99); MONO% 6.5 % (1.7-9.3); MPV 12.1 FL (7.4-10.4); NEUT# 5.15 X1000 (1.4-6.5); NEUT% 83.2 % (42.2-75.2); PLT 157 X1000 (130-400); RBC 3.54 XMIL (4.7-6.1); RDW 20.8 % (11.5-14.5); WBC 6.18 X1000 (4.8-10.8)
[2019-02-25 13:25] LABS: INR 1.33; PROTIME 16.7 Seconds (11.0-16.0)
[2019-02-25 13:26] LABS: PTT 35.3 Seconds (22.3-41.8)
--- NOTE | 2019-02-25 13:30 | EKG Report ---
Test Performed on : 02/25/2019 12:55:53 PM Test Reason : sob Blood Pressure : / mmHG Vent. Rate : 092 BPM Atrial Rate : 357 BPM P-R Int : 000 ms QRS Dur : 144 ms QT Int : 422 ms P-R-T Axes : 000 -65 243 degrees QTc Int : 521 ms Atrial fibrillation. with occasional ventricular-paced complexes and with premature ventricular or ab errantly conducted complexes. Left axis deviation Left bundle branch block Abnormal ECG When compared with ECG of 11-JAN-2019 20:28, (Unconfirmed) Previous ECG has undetermined rhythm, needs review Unconfirmed Result
[2019-02-25 14:02] LABS: ALB/GLOB RATIO 1.8; ALBUMIN 3.9 g/dL (3.5-5.0); CALCIUM 8.8 mg/dL (8.8-10.2); CREATININE 1.2 mg/dL (0.7-1.2); POTASSIUM 4.2 mmol/L (3.5-5.1); TOTAL BILIRUBIN 0.7 mg/dL (0.20-1.00); TOTAL PROTEIN 6.1 g/dL (6.3-8.3)
[2019-02-25] MEDS ORDERED: LASIX IV ONE (14:49)
--- NOTE | 2019-02-25 14:49 | PROVIDER DOCUMENTATION ---
HPI-Respiratory General - General Chief Complaint: Shortness of Breath Stated Complaint: CP Time Seen by Provider: 02/25/19 14:32 Source: patient, family (son at bedside) Allergies/Adverse Reactions: Patient Allergies Allergy/AdvReac Type Severity Reaction Status Date / Time codeine [Codeine] AdvReac Intermediate LETHARGIC Verified 01/11/19 21:29 Home Medications: Home Medication List Medication Instructions Recorded Confirmed Last Taken Type Aspirin [Adult Low Dose Aspirin EC] 81 mg PO DAILY 12/02/16 02/25/19 02/25/19 07:00 History Pantoprazole [Protonix] 40 mg PO BID tablet 08/27/17 02/25/19 02/25/19 07:00 Rx Tamsulosin [Flomax] 0.4 mg PO QHS 11/17/17 02/25/19 02/24/19 19:00 History Potassium Chloride E.r. [Micro-K] 8 meq PO BID 11/25/17 02/25/19 02/25/19 07:00 History Carvedilol [Coreg] 12.5 mg PO Q12H tablet 12/04/17 02/25/19 02/25/19 07:00 Rx Levothyroxine [Synthroid] 112 microgm PO DAILY@0700 tablet 12/04/17 02/25/19 02/25/19 07:00 Rx ATORVAstatin [Lipitor] 40 mg PO QHS #30 tab 12/19/18 02/25/19 02/24/19 21:00 Rx Pregabalin [Lyrica] 50 mg PO BID #60 cap 12/19/18 02/25/19 02/25/19 07:00 Rx Furosemide [Lasix] 40 mg PO DAILY 01/11/19 02/25/19 02/25/19 07:00 History Hydrocodone/Acetaminophen [[place] 1 ea PO Q6HR PRN 02/25/19 02/26/19 02/25/19 12:00 History 10-325 Tablet] Cetirizine [Zyrtec] 10 mg PO DAILY #14 tab 03/02/19 Unknown Rx Cholecalciferol (Vit D3) [Vitamin 2,000 unit PO DAILY #120 tab 03/02/19 Unknown Rx D3] Ferrous Sulfate 325 mg PO BID #120 tab 03/02/19 Unknown Rx Sennosides/Docusate Sodium 1 ea PO BID #120 tab 03/02/19 Unknown Rx [Pericolace] - History of Present Illness-Resp Nature of Presenting Problem: 83 YO M pmh for CHF on lasix presents with c/o SOB x 1 day with chills and chest pressure. Denies any cough or wheezing. does endorse some lower extremity swelling in his right leg. Quality of Pain: reports: tightness Onset/Duration: reports: 24 hours ago Timing: reports: still present Cough Quality/Degree: reports: dry cough Episode Frequency: occasional episodes Similar Symptoms Previously?: Yes Recently seen or treated by another doctor?: No Review of Systems - Adult - REVIEW OF SYSTEMS - ADULT Constitutional: reports: see HPI, chills. denies: fever Eyes: reports: no symptoms reported Ears, Nose, Mouth & Throat: reports: no symptoms reported Cardiovascular: reports: see HPI, chest pain. denies: palpitations, syncope Respiratory: reports: see HPI, cough Gastrointestinal: reports: no symptoms reported Genitourinary: reports: no symptoms reported Musculoskeletal: reports: no symptoms reported Integumentary: reports: no symptoms reported Neurological: reports: no symptoms reported Past History - Adult - PAST MEDICAL HISTORY-ADULT Review of Records: reports: Old Records Reviewed, Social history reviewed & non- contributory. Major Childhood Illnesses: reports: denies history Cardiovascular: reports: cardiac disease, CHF, HTN, hyperlipidemia, [place] Respiratory: reports: COPD Gastrointestinal: reports: denies history Obstetrical/Gynecological: reports: denies history Genitourinary: reports: other (prostate disease with prostate surgery) Musculoskeletal: reports: denies history Neurological: reports: denies history Psychiatric: reports: denies history Endocrine/Immune: reports: thyroid disorder Other Conditions: reports: denies history - PRIOR SURGERIES/PROCEDURES Surgical/Procedure History: reports: CABG, cholecystectomy - IMMUNIZATION STATUS Childhood Immunizations: See Nurse Assessment Flu Vaccine: See Nurse Assessment - FAMILY HISTORY Family History: reviewed, not pertinent - SOCIAL HISTORY Smoking: quit greater than 1 year Alcohol Use Frequency: sober (former use) Living Situation: family Physical Exam-General - PHYSICAL EXAM-ADULT Initial Vital Signs Reviewed: Yes - CONSTITUTIONAL General Appearance: alert, no apparent distress - EYES Eyes: PERRL/EOMI, pink conjunctivae - HEAD, EARS, NOSE, MOUTH & THROAT HENMT: moist mucous membranes - NECK Neck: supple - RESPIRATORY Respiratory: crackles (left lower lung base) - CARDIOVASCULAR Cardiovascular: other (mild pedal edema right LE) - GASTROINTESTINAL (ABDOMEN) Abdominal Exam: non tender, soft. negative: distended, guarding - MUSCULOSKELETAL Back Exam: no CVA tenderness Extremity: pedal edema, other (left AKA) - SKIN Integumentary: normal color, normal turgor, warm/dry - NEUROLOGIC Neurologic: grossly normal - PSYCHIATRIC Psych/Mental Status: normal mood/affect, oriented x 3 Progress - PLAN OF CARE/RESULTS Progress/Plan/Lab Results: Orders Category Date Time Status Admit - [facility] Routine AdmDCTranf 02/25/19 18:27 Active Activity - Up with Assistance ORDERED Care 02/25/19 18:27 Active Apply Mechanical Device [QM] ORDERED Care 02/25/19 18:27 Active Cardiac Monitoring DIRECTED Care 02/25/19 13:02 Completed Intake and Output-Strict ORDERED Care 02/25/19 18:27 Active Oxygen Therapy- ED Nursing DIRECTED Care 02/25/19 13:02 Completed Saline Loc NOW Care 02/25/19 13:02 Completed Vital Signs Order Q 4-HR ASSESS Care 02/25/19 18:27 Active Z-Document. for Tele Applied ORDERED Care 02/25/19 18:27 Completed Heart Healthy Diet Diet 02/25/19 18:28 Completed CHEST-2 VIEWS [RAD] Stat Exams 02/25/19 13:02 Completed CBC WITH ELECTRONIC DIFF [HEME] Stat Lab 02/25/19 12:59 Completed CK PROFILE [SP CHEM] Stat Lab 02/25/19 12:59 Completed COMPREHENSIVE METABOLIC PANEL [CHEM] Stat Lab 02/25/19 12:59 Completed Flu Swab [INFLUENZA SCREEN A/B] Stat Lab 02/25/19 12:59 Completed PRO B-NATRIURETIC PEPTIDE Stat Lab 02/25/19 12:59 Completed PROTIME WITH INR [COAG] Stat Lab 02/25/19 12:59 Completed PTT [COAG] Stat Lab 02/25/19 12:59 Completed TROPONIN T HIGH SENSITIVITY Stat Lab 02/25/19 12:59 Completed ATORVAstatin [Lipitor] Med 02/25/19 21:00 Discontinued 40 mg PO QHS Acetaminophen [Tylenol] Med 02/25/19 18:27 Discontinued 650 mg PO Q6H PRN PRN Albuterol 2.5MG/Ipratrop 0.5MG [Duoneb (A & A)] Med 02/25/19 15:07 Discontinued 3 ml INH NOW ONE Aspirin Med 02/25/19 13:02 Discontinued 325 mg PO NOW ONE Aspirin EC Med 02/26/19 09:00 Discontinued 81 mg PO DAILY Carvedilol [Coreg] Med 02/25/19 19:00 Discontinued 12.5 mg PO Q12H Furosemide [Lasix] Med 02/25/19 20:00 Discontinued 40 mg IV Q12H Furosemide [Lasix] Med 02/25/19 14:49 Discontinued 80 mg IV NOW ONE Hydrocodone/APAP 10 mg/325 mg [Judsonia-10] Med 02/25/19 19:00 Discontinued 1 each PO TID@0700,1200,1900 Lactulose Med 02/25/19 18:27 Discontinued 30 ml PO BID PRN PRN Levothyroxine [Synthroid] Med 02/26/19 07:00 Discontinued 112 microgm PO DAILY@0700 Ondansetron [Zofran] Med 02/25/19 18:27 Discontinued 4 mg IV Q4H PRN PRN Pantoprazole [Protonix] Med 02/25/19 21:00 Discontinued 40 mg PO BID@0700,2100 Potassium Chloride E.r. [Micro-K] Med 02/25/19 21:00 Discontinued 8 meq PO BID Pregabalin [Lyrica] Med 02/25/19 21:00 Discontinued 50 mg PO BID Tamsulosin [Flomax] Med 02/25/19 21:00 Discontinued 0.4 mg PO QHS Aerosol Treatments Routine Oth 02/25/19 15:07 Completed Aerosol Treatments Stat Oth 02/25/19 15:07 Completed Telemetry [OM.EQ] Routine Oth 02/25/19 18:27 Active EKG [EKG] Stat Ther 02/25/19 13:02 Draft Echo Spec/Color Doppler Routine Ther 02/26/19 07:00 Completed Transfer/Admit Order [TRANSFER] Routine Transfer 02/25/19 17:23 Completed Result Diagrams: 03/03/19 05:00 03/03/19 05:00 - EKG 1 Time of EKG reading by physician:: 12:55 EKG Read and Signed by:: Micah Goodman EKG Interpretation (*Must complete 3 of following elements*): Abnormal Rate: 92 Rhythm: a fib, rate controlled, with pvcs [place]: left QRS: LBB, other (ventricular paced) Prior EKG Comparison: unchanged from prior (01/11/19) - XRAY 1 XRAY Study: Chest Impression: See EMR Report (CHEST-2 VIEWS - 02/25/2019 INDICATION: sob COMPARISON: 01/27/2019 FINDINGS: Stable sternotomy changes. Stable biventricular pacemaker. There is worsening cardiomegaly and diffuse pulmonary vascular congestion. No significant infiltrates or edema. No pleural effusion. IMPRESSION: Worsening cardiomegaly and pulmonary vascular congestion. Electronically signed by Christopher Fernando 02/25/2019 1:16 PM) - CONSULTS/PCP/HOSPITALIST Notification #1 *Consult/PCP/Hospitalist*: Dr. Landin Time Discussed: 17:18 Consult Disposition: Will see in ED Departure - Departure Date of Disposition Decision: 02/25/19 Time of Disposition Decision: 16:19 DIAGNOSIS: CHF exacerbation Disposition: ADMITTED INPATIENT 09 Certified Medical Emergency: Emergent Condition: Stable - Critical Care Note This patient required my direct & personal management of CC.: No Attestation - Physician/ THO Attestation Patient care was provided by Advanced Practice Provider:: No The physician spent face to face time with patient:: Yes Advanced Practice Provider documentation review:: Supervising physician onsite and consulted in the evaluation and care of this patient. The physician did have a face to face encounter with the patient.
[2019-02-25] MEDS ORDERED: DUONEB (A & A) INH ONE (15:07)
[2019-02-25] MEDS ORDERED: LACTULOSE PO PRN (18:27)
[2019-02-25] MEDS ORDERED: NORCO-10 PO SCH (19:00)
--- NOTE | 2019-02-25 19:49 | HISTORY AND PHYSICAL ---
PRIMARY CARE PHYSICIAN: Dr. Zhen Rapp. CHIEF COMPLAINT: Shortness of breath with chest pressure x1 day, that progressively worsened. HISTORY OF PRESENTING ILLNESS: This is an 83-year-old, male, who presents to [facility], with a 1-day history of shortness of breath and chest pressure that progressively worsened. It is noted that he was in the hospital from 01/12/2019 to 01/20/2019, with a community-acquired pneumonia, COPD exacerbation, and congestive heart failure. His workup today showed a proBNP of 10,072, which is slightly up from when he was in the hospital in the 0s. His chest x-ray showed worsening cardiomegaly and pulmonary vascular congestion. He was saturating 90% on room air and was placed on O2 via nasal cannula, and will now be admitted for further evaluation and treatment. PAST MEDICAL HISTORY: CHF, ischemic cardiomyopathy, chronic kidney disease, hypothyroidism, benign prostatic hypertrophy, COPD, CAD, hypertension, chronic atrial fibrillation, and GERD. PAST SURGICAL HISTORY: Pacemaker defibrillator placement, CABG, cholecystectomy, left AKA, and bilateral carpal tunnel repair. FAMILY HISTORY: Reviewed and noncontributory. SOCIAL HISTORY: He currently lives with family. He is a former smoker, former drinker, quit both for several years now, and denies any illicit drug use. ALLERGIES: Codeine. HOME MEDICATIONS: Aspirin 81 mg p.o. daily, atorvastatin 40 mg p.o. at bedtime, Coreg 12.5 mg p.o. q.12, Lasix 20 mg with lunch (will be held), Lasix 40 mg p.o. daily (will be held), [place] 10 one p.o. t.i.d., lactulose 30 mL p.o. b.i.d. p.r.n., Synthroid 112 mcg p.o. daily, pantoprazole 40 mg p.o. b.i.d., Micro-K 8 mEq p.o. b.i.d., Lyrica 50 mg p.o. b.i.d., and Flomax 0.4 mg p.o. at bedtime. LABORATORY AND DIAGNOSTIC DATA: White blood cell count of 6.18, hemoglobin of 9, hematocrit 30.3, platelets 157,000. PT/INR of 16.7 and 1.33. Sodium 136, potassium 4.2, chloride 104, CO2 of 21, BUN of 20, creatinine 1.2, glucose 125. Troponin T high sensitivity of 44. ProBNP of 10,072. Chest x-ray showed worsening cardiomegaly and pulmonary vascular congestion. EKG showed atrial fibrillation with occasional ventricular-paced complexes and with premature ventricular or aberrantly conducted complexes at 92. REVIEW OF SYSTEMS: He denied any fever, chills, blurred vision, dizziness, chest pain. He did have some chest pressure, shortness of breath. Denied any cough. Denied any abdominal pain, constipation, diarrhea, burning or hurting with urination. PHYSICAL EXAMINATION: VITAL SIGNS: On arrival, he had a temperature of 100.1 degrees, pulse of 87, respirations 19, blood pressure 110/61, saturating 90% on room air. GENERAL: This is an 83-year-old, male, who is lying in the bed and answers questions appropriately. HEENT: Normocephalic, atraumatic. Normal ENT inspection. Oropharynx and nares are clear. EYES: Pupils are equal, round, and reactive to light and accommodation. Extraocular movements are intact. NECK: Normal inspection. Normal range of motion. LUNGS: Some crackles to the left lower lung base. Equal lung expansion and chest wall movement noted. HEART: Irregular rate and rhythm, but no murmurs, rubs, or gallops. He does have some mild pedal edema to the right lower extremity. ABDOMEN: Soft, nontender, nondistended. Bowel sounds are present x4 quadrants. MUSCULOSKELETAL: Strength 5/5 x4 extremities. NEUROLOGICAL: Cranial nerves 2-12 appear grossly intact. ASSESSMENT: 1. Acute congestive heart failure exacerbation. 2. Dyspnea. 3. Chronic atrial fibrillation. 4. Hypertension. PLAN: He will be admitted to the medical unit, placed on telemetry, healthy heart diet, SCDs for DVT prophylaxis. We will check an echocardiogram in the a.m. Place him on Lasix 40 mg IV q.12. Continue home medications as previously identified, and recheck a CBC and BMP in the a.m. Further orders after seen by attending. Dictated by DEJAN Mcneill for Melvin Han MD cc: DEJAN Mcneill MD Alan Walker, MD
[2019-02-25] MEDS: FLOMAX PO SCH (20:09)
[2019-02-25] MEDS: PROTONIX PO SCH (20:09)
[2019-02-25] MEDS: COREG PO SCH (20:10)
[2019-02-25] MEDS: LIPITOR PO SCH (20:10)
[2019-02-25] MEDS: LYRICA PO SCH (20:10)
[2019-02-25] MEDS: ROCEPHIN 1 GM in NS 50 ML IV SCH (20:11)
[2019-02-25] MEDS: LASIX IV SCH (20:11)
[2019-02-25] MEDS: MICRO-K PO SCH (20:14)
--- NOTE | 2019-02-25 20:25 | HISTORY AND PHYSICAL ---
ADDENDUM: The patient is seen and examined by me face to face, and laboratory, vital signs and images were reviewed. The patient presented to the emergency department with a chief complaint of shortness of breath that apparently has been with him for 1 day. He does have a history of CHF, and he has been hospitalized here before, and actually he was discharged on 01/20/2019 due to pneumonia, COPD exacerbation and CHF. At this moment he has no wheezing, but he has bilateral crackles. On my physical exam, it looks to me that this is more related to a CHF exacerbation than a COPD problem. He will be placed on Lasix. He has been coughing up some clear secretions, and I will ask for a sputum culture just to rule out any kind of problem, but the chest x-ray today showed worsening cardiomegaly and pulmonary vascular congestion. I will also order an echocardiogram to be done tomorrow morning. Otherwise, I will continue with his home medications. I agree with the rest of the nurse practitioner's assessment and plan. cc: Melvin Han MD
[2019-02-25] MEDS: TESSALON PO PRN (22:08)
[2019-02-25] MEDS: HALL'S COUGH LOZENGE MT PRN (22:08)
[2019-02-26] MEDS: ZOFRAN IV PRN ×2 (04:05→08:34)
[2019-02-26] MEDS: NORCO-10 PO PRN ×3 (04:20→17:20)
[2019-02-26] MEDS: PROTONIX PO SCH ×2 (07:03→20:58)
[2019-02-26] MEDS: TESSALON PO PRN (07:03)
[2019-02-26] MEDS: SYNTHROID PO SCH (07:03)
[2019-02-26] MEDS: COREG PO SCH ×2 (07:03→20:58)
[2019-02-26] MEDS: ASPIRIN EC PO SCH (08:29)
[2019-02-26] MEDS: MICRO-K PO SCH ×2 (08:29→20:59)
[2019-02-26] MEDS: LASIX IV SCH ×2 (08:30→20:58)
[2019-02-26] MEDS: LYRICA PO SCH ×2 (08:30→20:59)
[2019-02-26 11:12] LABS: BASO# 0.01 X1000 (0.0-0.2); BASO% 0.1 % (0.0-0.8); EOS# 0.02 X1000 (0.0-0.7); EOS% 0.2 % (0.0-10.0); HEMATOCRIT 32.1 % (42.0-52.0); HEMOGLOBIN 9.6 g/dL (14.0-18.0); LYMPH# 1.44 X1000 (1.2-3.4); LYMPH% 16.1 % (20.5-51.1); MCH 25.7 PG (27-31); MCHC 29.9 g/dL (33-37); MCV 85.8 FL (81-99); MONO# 0.54 X1000 (0.11-0.59); MPV 11.6 FL (7.4-10.4); NEUT# 6.93 X1000 (1.4-6.5); NEUT% 77.6 % (42.2-75.2); PLT 155 X1000 (130-400); RBC 3.74 XMIL (4.7-6.1); RDW 21.1 % (11.5-14.5); WBC 8.94 X1000 (4.8-10.8)
--- NOTE | 2019-02-26 11:43 | PROGRESS NOTE ---
DATE: 02/26/2019 SUBJECTIVE: The patient is breathing better but he is complaining of bilateral arms tingling sensation. Pending lab work at this moment. This patient just went to get an echocardiogram. I will wait for the results. Vital signs are stable. OBJECTIVE: Vital Signs: Temperature 98.2 degrees, pulse 80, respiratory rate 18, blood pressure 143/56, oxygen saturation 97% on room air. HEENT: Head normocephalic, no trauma. PERRLA. Neck: Supple. Mild JVD. Central trachea. Chest: Coarse breath sounds at the bases with some crackles. Abdomen: Soft, nontender, nondistended. No hepatosplenomegaly. Extremities: Trace edema at the level of the right lower extremity. 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 Neurological: Patient is awake, alert. He is oriented x3. He has bilateral tingling sensation. LABORATORY: Pending lab work today. ASSESSMENT AND PLAN: 1. Congestive heart failure exacerbation. His last echocardiogram was done in July 2017. We will repeat that. At that time, his ejection fraction was around 40% to 45%. He had also pulmonary hypertension at 64 mmHg. We will continue with Lasix intravenously. We will continue with his home potassium as well. Pending lab work at this moment. 2. Chronic atrial fibrillation. Continue with same management. I do not see any medications listed for anticoagulation, and I checked his discharge medications from last time and anticoagulation was not an option. I believe he is not on anticoagulation because of a history of gastrointestinal bleed, which has been recently on 12/19/2018, seen by Dr. Whyte. 3. Hypertension, stable. 4. History of gastrointestinal bleed, aware. Hemoglobin seems to be stable. Pending lab work today though. 5. History of kidney cardiomyopathy, continue with same management. This patient also has a pacemaker defibrillator. 6. Chronic kidney disease, stable. 7. Hypothyroidism. Continue with same management. 8. History of possible chronic obstructive pulmonary disease, aware. 9. Peripheral neuropathy. Continue home medications. 10. Gastroesophageal reflux disease. Continue proton pump inhibitors. PENDING LAB WORK: The pending lab work at this moment, this patient just went to get an echocardiogram done. We will monitor. cc: Melvin Han MD
[2019-02-26 12:15] LABS: CALCIUM 8.9 mg/dL (8.8-10.2); CREATININE 1.3 mg/dL (0.7-1.2); POTASSIUM 4.4 mmol/L (3.5-5.1)
--- NOTE | 2019-02-26 15:48 | ECHO REPORT ---
ORDER DATE: 02/26/2019 INTERPRETING PHYSICIAN: Mathieu Perez MD ECHOCARDIOGRAPHIC MEASUREMENTS: 1. Interventricular septum 1.3. 2. Left ventricular posterior wall 1.0. 3. Diastolic diameter 5.8. 4. Left atrium 4.6. 5. Aorta 2.3. 6. Right ventricle had mildly reduced right ventricular systolic function. 7. Aortic valve leaflets are calcified. 8. Tricuspid valve was normal. 9. Mitral valve was normal. There is mitral annular calcification. SUMMARY OF 2-DIMENSIONAL IMAGIN. Technically suboptimal study. Poor acoustic window. 2. There is mild mitral regurgitation. 3. Mild tricuspid regurgitation. 4. Peak velocity across the tricuspid valve less than 2 m/sec. 5. Endocardium not well visualized in all views. 6. Normal left ventricular cavity size. Estimated ejection fraction of 40 to 45 percent. 7. There is mild tricuspid regurgitation. 8. Pacing leads were noted in the right chamber. 9. Peak velocity across the aortic valve was 2 m/sec with a mean gradient of 4 mmHg. 10. There is aortic calcification noted. 11. There is no pericardial effusion. cc: MD Elena Smith CRNP
[2019-02-26] MEDS: HALL'S COUGH LOZENGE MT PRN (17:23)
[2019-02-26] MEDS ORDERED: G.I. COCKTAIL PO ONE (18:43)
[2019-02-26] MEDS ORDERED: CALMOSEPTINE OINTMENT TOP ONE (18:50)
[2019-02-26] MEDS: FLOMAX PO SCH (20:59)
[2019-02-26] MEDS: ROCEPHIN 1 GM in NS 50 ML IV SCH (20:59)
[2019-02-26] MEDS: LIPITOR PO SCH (20:59)
[2019-02-27] MEDS: ZOFRAN IV PRN (01:59)
[2019-02-27] MEDS: NORCO-10 PO PRN ×3 (02:27→17:18)
[2019-02-27] MEDS: COREG PO SCH ×2 (06:25→18:25)
[2019-02-27] MEDS: SYNTHROID PO SCH (06:25)
[2019-02-27] MEDS: PROTONIX PO SCH ×2 (06:25→20:27)
[2019-02-27 06:36] LABS: CALCIUM 8.3 mg/dL (8.8-10.2); CREATININE 1.3 mg/dL (0.7-1.2); POTASSIUM 3.3 mmol/L (3.5-5.1)
[2019-02-27] MEDS: ASPIRIN EC PO SCH (08:10)
[2019-02-27] MEDS: LASIX IV SCH (08:10)
[2019-02-27] MEDS: MICRO-K PO SCH ×2 (08:10→20:27)
[2019-02-27] MEDS: LYRICA PO SCH ×2 (08:10→20:31)
--- NOTE | 2019-02-27 08:16 | Diag Imaging Result Doc PS360 ---
CHEST-PORTABLE - 02/27/2019 INDICATION: SOB COMPARISON: 02/25/2019 FINDINGS: Stable sternotomy wires. Stable pacemaker. Heart size is normal. Pulmonary vascularity is top normal. No infiltrates or definite edema. No pneumothorax or pleural effusion. IMPRESSION: Improvement from prior. No acute disease. Electronically signed by Christopher Fernando 02/27/2019 8:14 AM
--- NOTE | 2019-02-27 17:48 | PROGRESS NOTE ---
DATE: 02/27/2019 SUBJECTIVE: Today Mr. Siegel refers to be doing okay. He says he just has generalized body aches and pains, but his breathing has significantly improved. As a matter of fact, Mr. Siegel was without oxygen when I saw him. He has been saturating 96% on room air. OBJECTIVE: General: Mr. Siegel is an 83-year-old elderly gentleman. He is in bed in no distress. HEENT: Mucosa is pink and moist. Anicteric. Acyanotic. Neck: Supple. No JVD. Chest: Good air entry bilaterally. I do not hear any wheezing or crackles. Cardiovascular: Regular rate and rhythm. No murmurs, no rubs, no gallops. GI: Abdomen was soft, nontender. Bowel sounds present. Extremities: No pedal edema on the right. The patient has a left above knee amputation. STONE ENGRAVER: Patient is awake, alert. LABORATORY DATA: No CBC for this morning. Chemistry shows a potassium of 3.3. Creatinine is 1.3. ASSESSMENT: 1. Fluid overload with pulmonary edema secondary to congestive heart failure on presentation. Ejection fraction of 40% to 45%. He looks euvolemic at this point. I will switch his IV diuretic therapy to p.o. 2. Chronic atrial fibrillation, currently rate controlled. 3. Hypertension, controlled. 4. Hypothyroidism. The patient continues to be on thyroid supplements. 5. Acute kidney injury. 6. Ischemic cardiomyopathy on previous perfusion scan. PLAN: In general, I think Mr. Siegel is doing a lot better. He currently has a negative balance of 2054. He looks euvolemic, probably on the side of volume depletion. Will change his IV diuretics from today. Continue with the other medications and re-evaluate him in the morning. Mr. Siegel is a potential discharge for tomorrow. cc: Jeremiah Delgado MD
[2019-02-27] MEDS: TYLENOL PO PRN (18:26)
[2019-02-27] MEDS: FLOMAX PO SCH (20:27)
[2019-02-27] MEDS: ROCEPHIN 1 GM in NS 50 ML IV SCH (20:27)
[2019-02-27] MEDS: LIPITOR PO SCH (20:28)
[2019-02-28 06:01] LABS: HEMATOCRIT 29.2 % (42.0-52.0); HEMOGLOBIN 8.8 g/dL (14.0-18.0); MCH 26.1 PG (27-31); MCHC 30.1 g/dL (33-37); MCV 86.6 FL (81-99); MPV 11.5 FL (7.4-10.4); RBC 3.37 XMIL (4.7-6.1); RDW 20.8 % (11.5-14.5); WBC 3.43 X1000 (4.8-10.8)
[2019-02-28] MEDS: SYNTHROID PO SCH (06:06)
[2019-02-28] MEDS: PROTONIX PO SCH ×2 (06:06→20:17)
[2019-02-28] MEDS: COREG PO SCH ×2 (06:06→18:37)
[2019-02-28] MEDS: NORCO-10 PO PRN ×2 (06:06→20:18)
[2019-02-28 06:30] LABS: ALBUMIN 3.3 g/dL (3.5-5.0); CALCIUM 8.5 mg/dL (8.8-10.2); CREATININE 1.2 mg/dL (0.7-1.2); PHOSPHORUS 4.1 mg/dL (2.7-4.5); POTASSIUM 3.8 mmol/L (3.5-5.1)
[2019-02-28] MEDS: LASIX PO SCH (09:17)
[2019-02-28] MEDS: ASPIRIN EC PO SCH (09:17)
[2019-02-28] MEDS: LYRICA PO SCH ×2 (09:17→20:18)
[2019-02-28] MEDS: MICRO-K PO SCH ×2 (09:17→20:17)
[2019-02-28] MEDS: TESSALON PO PRN (09:27)
--- NOTE | 2019-02-28 12:54 | EKG Report ---
Test Performed on : 02/25/2019 6:14:05 PM Test Reason : ED. NO order in [place] Blood Pressure : / mmHG Vent. Rate : 080 BPM Atrial Rate : 078 BPM P-R Int : 000 ms QRS Dur : 190 ms QT Int : 462 ms P-R-T Axes : 000 261 047 degrees QTc Int : 532 ms Ventricular-paced rhythm Abnormal ECG When compared with ECG of 25-FEB-2019 12:55, (Unconfirmed) Vent. rate has decreased BY 12 BPM Unconfirmed Result
[2019-02-28] MEDS: TYLENOL PO PRN (16:26)
--- NOTE | 2019-02-28 18:22 | PROGRESS NOTE ---
DATE: 02/28/2019 SUBJECTIVE: This morning Mr. Siegel refers to be having more difficulty coughing. He said nothing is coming up. He said he also feels generally weak, that just getting up to sit in the chair is an extreme difficult task for him. OBJECTIVE: Vital signs: Blood pressure 127/56, pulse of 80, respirations 19, temperature is 98.2 degrees. General: Mr. Siegel is an 83-year-old gentleman. He is in bed in no distress. Mucosa is pink and moist. Anicteric. Acyanotic. Neck: Supple. There is no JVD. Chest: Good air entry bilateral. I did not hear any crackles or wheezing. Cardiovascular: Regular rate and rhythm. There are no murmurs, no rubs, no gallops. Abdomen: Soft, nontender. Bowel sounds present. There is no hepatosplenomegaly. Extremities: No pedal edema. The right lower extremity has an above knee amputation. Central Nervous System: Patient is awake, alert, and oriented. LABORATORY STUDIES: The patient's I's and O's urine has been documented to be 1775. Patient is negative balance of 1994. His weight is 180. CBC shows mild pancytopenic. Chemistry is completely unremarkable. Creatinine has normalized. The pro BNP is down to 3176. The patient's chest x-ray this morning shows improvement from prior. No acute disease. MEDICATIONS: Have all been reviewed. He continues to be on ceftriaxone and diuretics. ASSESSMENT AND PLAN: 1. Fluid overload with pulmonary edema secondary to congestive heart failure. The patient's ejection fraction is 40% to 45% . Currently looks euvolemic. Pro BNP has come down to about 3000. 2. Chronic atrial fibrillation, currently rate and rhythm controlled. 3. Hypertension, controlled. 4. Hypothyroidism. Patient is on supplements. 5. Acute kidney injury, improving. 6. Ischemic cardiomyopathy on previous perfusion scan. 7. Generalized weakness and deconditioning. Physical therapy has been consulted. 8. Status post left above knee amputation noted. 9. Pancytopenia, concerning for mineral and vitamin deficiencies. We will check on his iron as well as B12 and folate. cc: Jeremiah Delgado MD
[2019-02-28] MEDS: ROCEPHIN 1 GM in NS 50 ML IV SCH (20:17)
[2019-02-28] MEDS: FLOMAX PO SCH (20:18)
[2019-02-28] MEDS: LIPITOR PO SCH (20:18)
[2019-03-01] MEDS: NORCO-10 PO PRN ×2 (02:48→21:23)
[2019-03-01] MEDS: PROTONIX PO SCH ×2 (06:00→21:24)
[2019-03-01] MEDS: SYNTHROID PO SCH (06:00)
[2019-03-01] MEDS: COREG PO SCH ×2 (06:00→18:52)
[2019-03-01 07:34] LABS: IRON SATURATION 12 %; TIBC 244 ug/dL; TOTAL IRON 30 ug/dL (53-167); UNBOUND IRON 214 ug/dL (112-346)
[2019-03-01 08:15] LABS: FERRITIN 177 ng/mL (30-400)
[2019-03-01] MEDS ORDERED: VENOFER 200 MG in NS 150 ML IV ONE (08:16)
[2019-03-01] MEDS: LASIX PO SCH (08:51)
[2019-03-01] MEDS: LYRICA PO SCH ×2 (08:51→21:24)
[2019-03-01] MEDS: MICRO-K PO SCH ×2 (08:51→21:23)
[2019-03-01] MEDS: ASPIRIN EC PO SCH (11:29)
[2019-03-01] MEDS ORDERED: BLISTEX MEDICATED BERRY LIP BALM TOP PRN (12:55)
[2019-03-01] MEDS ORDERED: ROBITUSSIN-AC PO PRN (13:09)
[2019-03-01] MEDS ORDERED: ZYRTEC PO ONE (13:10)
--- NOTE | 2019-03-01 15:14 | PROGRESS NOTE ---
DATE: 03/01/2019 SUBJECTIVE: This morning Mr. Siegel refers to be having some runny nose and coughing, generalized pains. Shortness of breath, however, has been improved. OBJECTIVE: Vital signs: Blood pressure is 126/56, pulse of 80, respirations 12, temperature 97.6 degrees. The patient is saturating 100% on room air. General: Mr. Siegel is an 83-year-old elderly gentleman. He is in bed. No distress. HEENT: Mucosa is pink and moist. Anicteric. Acyanotic. Neck: Supple. Chest: Good air entry bilateral. No crackles. No wheezing nor any added sounds. Cardiovascular: Regular rate and rhythm. No murmurs, no rubs, no gallops. Gastrointestinal: Abdomen was soft, nontender. Bowel sounds present. Extremities: The left lower extremity has an AKA. The right is unremarkable. Central Nervous System: Patient is awake, alert, and oriented. LABORATORY DATA: Vitamin D is 18.9, which is low. Percent saturation is 12, which is slightly low. ASSESSMENT: 1. Fluid overload on admission with pulmonary edema secondary to congestive heart failure, resolved. Patient ejection fraction is 40% to 45%. Currently looks euvolemic. 2. Chronic atrial fibrillation, currently rate controlled. 3. Hypertension, controlled. 4. Hypothyroidism. The patient is on levothyroxine supplement. 5. Acute kidney injury, resolved. 6. Ischemic cardiomyopathy on previous perfusion scan noted. 7. Generalized weakness and deconditioning. Physical Therapy is on board. 8. Status post left above-knee amputation noted. 9. Mild pancytopenia with low iron status with iron studies. We are going to replace his iron. 10. Vitamin D deficiency. We will continue replacement. PLAN: In general, I think Mr. Siegel is doing well. He was evaluated by his social service coordinator yesterday and was told that he is out of his rehab days and that if he wants to do rehab, then he would have to pay [id number]. I discussed this with him today and he said he cannot afford out- of-pocket. I did suggest home health with him. He was hesitant, he did not think that a home health will do him any good. In any case, Mr. Siegel came to the hospital mainly because of congestive heart failure symptoms, which seems to have significantly improved. ProBNP has reduced more than half. I think he is fairly stable for discharge, pending final recommendation from Physical Therapy. We will continue replacing all his minerals and vitamin deficiencies. cc: Jeremiah Delgado MD
[2019-03-01] MEDS: FLOMAX PO SCH (21:24)
[2019-03-01] MEDS: LIPITOR PO SCH (21:24)
[2019-03-01] MEDS: ROCEPHIN 1 GM in NS 50 ML IV SCH (21:24)
[2019-03-02] MEDS: NORCO-10 PO PRN ×3 (06:20→21:37)
[2019-03-02] MEDS: COREG PO SCH ×2 (06:20→18:27)
[2019-03-02] MEDS: PROTONIX PO SCH ×2 (06:20→21:37)
[2019-03-02] MEDS: SYNTHROID PO SCH (06:20)
--- NOTE | 2019-03-02 07:35 | Diag Imaging Result Doc PS360 ---
EXAM: CHEST-PORTABLE 03/02/2019 HISTORY: dyspnea TECHNIQUE: Erect AP portable at 0616 COMMENT: There are increased interstitial opacities in the right lower lobe compared to 02/27/2019. Otherwise are has been no significant change since the previous study. IMPRESSION: Mild pulmonary edema. Electronically signed by Dmitry Hutchison 03/02/2019 7:33 AM
[2019-03-02] MEDS ORDERED: LASIX IV ONE (08:58)
[2019-03-02] MEDS: MICRO-K PO SCH ×2 (10:07→21:26)
[2019-03-02] MEDS: LYRICA PO SCH ×2 (10:07→21:37)
[2019-03-02] MEDS: ASPIRIN EC PO SCH (10:08)
[2019-03-02] MEDS: ZYRTEC PO SCH (10:08)
[2019-03-02] MEDS: LASIX PO SCH (10:08)
--- NOTE | 2019-03-02 12:06 | PROGRESS NOTE ---
DATE: 03/02/2019 SUBJECTIVE: This morning, Mr. Siegel refers to be doing a lot better. He is not coughing as much as yesterday, and his nose is not running. However, he said he cannot tell if he is doing any better. He said he has been having multiple bowel movements. Clostridium difficile is negative. I think he is on lactulose. We will discontinue that and also the antibiotics. OBJECTIVE: General: Mr. Siegel is an 83-year-old, gentleman. He is in bed. No distress. HEENT: Mucosa is pink and moist. Vital Signs: Blood pressure is 124/55, pulse of 80, respirations 18, temperature is 98 degrees, the patient is saturating 100% on room air. Neck: Supple. No JVD. Chest: There is good air entry bilaterally. I did not hear any wheezing or rhonchi or crackles. Cardiovascular: Regular rate and rhythm. No murmurs, no rubs, no gallops. GI: Abdomen is soft, nontender. Bowel sounds present. Extremities: No pedal edema on the right side. The left has an AKA. ACCOUNTS RECEIVABLE ASSOCIATE: The patient is awake, alert, and oriented. LABORATORY DATA: None for today. PT report this morning shows that Mr. Siegel had a good maintenance balance with handhold support. ASSESSMENT: 1. Dyspnea with acute on chronic hypoxemic respiratory failure on presentation. The patient's shortness of breath has significantly improved. He is saturating 100% most times off oxygen. Pulmonary edema has also improved. The patient is currently on oral diuretics. 2. Fluid overload on presentation with pulmonary edema secondary to congestive heart failure exacerbation. The patient's ejection fraction is 40% to 45%. He currently looks euvolemic. 3. Chronic atrial fibrillation, currently rate controlled. 4. Hypertension, controlled. 5. Hypothyroidism. The patient is on levothyroxine supplement. 6. Acute kidney injury, resolved. 7. Ischemic cardiomyopathy on previous perfusion scan. 8. Generalized weakness and deconditioning. Physical Therapy is on board. The patient seems to be doing well. 9. Status post left above-knee amputation. 10. Mild pancytopenia with relative iron deficiency. The patient has had iron replacement during the hospital course. 11. Vitamin D deficiency. Will continue oral replacement. 12. Diarrhea. Clostridium difficile is negative. I think this is related to antibiotics. His chest x-ray does not show any further infection, so we have discontinued the antibiotics. In general, Mr. Siegel has been in the hospital 5 days. Shortness of breath is resolved. He is, most times, not on any supplemental oxygen. His proBNP had reduced. We think he is now nearing discharge. He has been evaluated by [facility], and he does not qualify to go to rehab, and he does not want home health either. Physical Therapy has been evaluating him, and he seems to be doing well. We plan to get him discharged hopefully tomorrow. cc: Jeremiah Delgado MD
[2019-03-02] MEDS: TYLENOL PO PRN (15:04)
[2019-03-02] MEDS: VITAMIN D PO SCH (18:27)
[2019-03-02] MEDS: FERROUS SULFATE PO SCH (21:37)
[2019-03-02] MEDS: FLOMAX PO SCH (21:37)
[2019-03-02] MEDS: LIPITOR PO SCH (21:38)
[2019-03-03] MEDS: NORCO-10 PO PRN ×2 (03:28→14:40)
[2019-03-03] MEDS: SYNTHROID PO SCH (06:16)
[2019-03-03] MEDS: PROTONIX PO SCH (06:16)
[2019-03-03] MEDS: COREG PO SCH (06:16)
[2019-03-03 08:00] LABS: HEMATOCRIT 31.7 % (42.0-52.0); HEMOGLOBIN 9.6 g/dL (14.0-18.0); MCH 25.9 PG (27-31); MCHC 30.3 g/dL (33-37); MCV 85.7 FL (81-99); MPV 12.5 FL (7.4-10.4); RBC 3.7 XMIL (4.7-6.1); RDW 20.5 % (11.5-14.5); WBC 4.37 X1000 (4.8-10.8)
[2019-03-03 08:12] LABS: AGAP 14; ALBUMIN 3.6 g/dL (3.5-5.0); BUN 17 mg/dL (8-22); CALCIUM 8.8 mg/dL (8.8-10.2); CHLORIDE 107 mmol/L (98-107); COSMO 286; CREATININE 0.9 mg/dL (0.7-1.2); ESTIMATED GFR > 60; GLUCOSE 81 mg/dL (70-104); PHOSPHORUS 3.7 mg/dL (2.7-4.5); POTASSIUM 4.6 mmol/L (3.5-5.1); SODIUM 143 mmol/L (136-145); TCO2 22 mmol/L (25-35)
--- NOTE | 2019-03-03 08:35 | Diag Imaging Result Doc PS360 ---
CHEST-2 VIEWS - 03/03/2019 INDICATION: hypoxia COMPARISON: 03/02/2019 FINDINGS: Stable sternotomy wires. Stable biventricular pacemaker. The lungs are clear. Heart size is normal. No pneumothorax or pleural effusion. IMPRESSION: Negative exam. Electronically signed by Christopher Fernando 03/03/2019 8:33 AM
[2019-03-03] MEDS: MICRO-K PO SCH (09:13)
[2019-03-03] MEDS: ZYRTEC PO SCH (09:14)
[2019-03-03] MEDS: FERROUS SULFATE PO SCH (09:14)
[2019-03-03] MEDS: LASIX PO SCH (09:14)
[2019-03-03] MEDS: ASPIRIN EC PO SCH (09:14)
[2019-03-03] MEDS: LYRICA PO SCH (09:14)
[2019-03-03] MEDS: VITAMIN D PO SCH (09:14)
[2019-03-03 16:04] VITALS: BP 136/67
--- NOTE | 2019-03-04 13:11 | DISCHARGE SUMMARY ---
ADMISSION DATE: 02/25/2019 DISCHARGE DATE: 03/03/2019 DISCHARGE DIAGNOSES: 1. Hypoxemic respiratory failure on presentation. 2. Fluid overload on presentation with pulmonary edema secondary to congestive heart failure exacerbation. 3. Chronic atrial fibrillation, rate controlled. 4. Hypertension, controlled. 5. Hypothyroidism. 6. Acute kidney injury, resolved. 7. Ischemic cardiomyopathy on previous perfusion scan. 8. Generalized weakness and physical deconditioning. 9. Status post left above the knee amputation. 10. Vitamin D deficiency. 11. Mild pancytopenia. 12. Diarrhea with C. Diff negative. 13. Vitamin D deficiency. PROCEDURES PERFORMED: 1. Chest x-ray dated 02/25/2019. Impression: Worsening cardiomegaly and pulmonary vascular congestion. 2. Echocardiogram dated 02/26/2019. Ejection fraction of 40 to 45 percent. 3. Chest x-ray dated 02/27/2019. Impression: Improvement from prior, no acute disease. 4. Chest x-ray dated 03/02/2019. Mild pulmonary edema. 5. Chest x-ray dated 03/03/2019. Impression: Negative exam. HOSPITAL COURSE: An 83-year-old male presented to [facility] with a 1-day history of shortness of breath and chest pressure that has been getting worse. He was admitted on 02/25/2019. He was hospitalized in January of 2019 due to community-acquired pneumonia, COPD exacerbation, and CHF. ProBNP the day of admission was around 10,000. Chest x-ray showed worsening cardiomegaly and pulmonary vascular congestion. His oxygen saturation was 90% on room air, and placed on oxygen through a nasal cannula. He was placed on Lasix. It looks like he has been coughing up some clear secretion. We asked for cultures including sputum culture and influenza, which both were negative. He started having some diarrhea but the C. Difficile toxin is negative and basically resolved. The patient was improving on a daily basis. His ejection fraction on the echocardiogram is about 40 to 45 percent. He was getting euvolemic slowly and his kidney function was recovering slowly, and today is completely normal. BUN is 17 and creatinine 0.9. This patient has generalized weakness and also he has an amputation at one of the extremities, but it looks like he has not qualified for rehab or long- term treatment in a facility. This case has been discussed with the outreach and education social worker, and the patient. He will be discharged home with home health. I have placed this patient back on his home medications. We discussed about the diet. He seems to be stable at this moment. He is not using any oxygen to keep the oxygenation stable. PHYSICAL EXAMINATION: Vital Signs: Temperature 97.8 degrees, pulse 79, respiratory rate 17, blood pressure 136/67 and oxygen saturation 98 percent on room air. HEENT: Head normocephalic. No trauma. PERRLA. Neck: Supple. No JVD. No masses. Central trachea. Chest: Clear to auscultation. No wheezing. No rales. Abdomen is soft. Nontender and nondistended. No hepatosplenomegaly. Extremities: No edema. He has a left AKA. Neurological: The patient is awake, alert, and oriented. He has generalized weakness. LABORATORY: WBC 4.3, hemoglobin 9.6, hematocrit 31.7, and platelets 149,000. Sodium 143, potassium 4.6, chloride 107, bicarbonate 22, BUN 17, creatinine 0.9, glucose 81, calcium 8.8, phosphorus 3.7, and albumin 3.6. DISCHARGE MEDICATIONS: 1. Aspirin 81 mg p.o. daily. 2. Lipitor 40 mg p.o. at bedtime. 3. Carvedilol 12.5 mg p.o. q.12 hours. 4. Zyrtec 10 mg p.o. daily. 5. Vitamin D3 2000 units p.o. daily. 6. Ferrous sulfate 325 mg p.o. b.i.d. 7. Lasix 40 mg p.o. daily. 8. Dougherty 10 one tablet p.o. q.6 hours as needed, levothyroxine 112 mcg p.o. daily. 9. Pantoprazole 40 mg p.o. b.i.d. 10. Potassium chloride ER 8 mEq p.o. b.i.d. 11. Lyrica 50 mg p.o. b.i.d. 12. Jo Ann-Colace 1 capsule p.o. b.i.d. 13. Flomax 0.4 mg p.o. at bedtime. TIME SPENT AT DISCHARGE: 25 minutes. cc: Melvin Han MD
== END 2019-03-03 19:03 | disposition home health service (06) | DRG 291 ==
LOC: ED 12:44 → 1N 17:42 → SUATTDRO 17:42 → 1N 03-01 15:00
PROVIDERS: ATTEND Internal Medicine